=== PATIENT | male | born 1955 | race African-American/Black ===

== ENCOUNTER 2017-07-06 09:57 | Emergency (ER) | payer BC ==
--- NOTE | 2017-07-06 10:45 | EDM.PDOC ---
ED HPI GENERAL MEDICAL PROBLEM - General Chief Complaint: Respiratory Problem Stated Complaint: HEAD CONGESTION, COUGH Time Seen by Provider: 07/06/17 10:30 Source of Information: Reports: Patient History Limitations: Reports: No Limitations - History of Present Illness INITIAL COMMENTS - FREE TEXT/NARRATIVE: History of present illness: [61-year-old male comes in complaining of flulike symptoms. Indicates that he has had shortness of breath, I cough, that is productive and can be painful in his ribs when he coughs harshly. Patient also describes intermittent fevers that are low-grade and with Tylenol or ibuprofen but now he feels like he's a His Joints and He Would like to Be Evaluated.] Review of systems: As per history of present illness and below otherwise all systems reviewed and negative. Past medical history: As per history of present illness and as reviewed below otherwise noncontributory. Surgical history: As per history of present illness and as reviewed below otherwise noncontributory. Social history: No reported history of drug or alcohol abuse. Family history: As per history of present illness and as reviewed below otherwise noncontributory. Physical exam: HEENT: Atraumatic, normocephalic, pupils reactive, negative for conjunctival pallor or scleral icterus, mucous membranes moist, throat clear, neck supple, nontender, trachea midline. Lungs: Clear to auscultation, breath sounds equal bilaterally, chest nontender. Heart: S1S2, regular, negative for clicks, rubs, or JVD. Abdomen: Soft, nondistended, nontender. Negative for masses or hepatosplenomegaly. Negative for costovertebral tenderness. Pelvis: Stable nontender. Genitourinary: Deferred. Rectal: Deferred. Extremities: Atraumatic, negative for cords or calf pain. Neurovascular unremarkable. Neuro: Awake, alert, oriented. Cranial nerves II through XII unremarkable. Cerebellum unremarkable. Motor and sensory unremarkable throughout. Exam nonfocal. Assessment is benign save the subjective complaint as noted in history of present illness Diagnostics: [Influenza AB] Therapeutics: [Toradol, DuoNeb] Impression: [Viral syndrome] Plan: [Hydrate inhaler] Definitive disposition and diagnosis as appropriate pending reevaluation and review of above. Bodyaches Pain Score (Numeric/FACES): 6 - Related Data Allergies Allergy/AdvReac Type Severity Reaction Status Date / Time No Known Allergies Allergy Verified 07/06/17 10:11 Home Meds: Home Meds . [No Known Home Meds] 07/06/17 [History] Past Medical History - Past Health History Medical/Surgical History: Denies Medical/Surgical History Social & Family History - Family History Family Medical History: Noncontributory - Tobacco Use Smoking Status *Q: Never Smoker - Recreational Drug Use Recreational Drug Use: No ED ROS GENERAL - Review of Systems Review Of Systems: See Below (See history of present illness) ED EXAM, GENERAL - Physical Exam Exam: See Below (See history of present illness) Course - Vital Signs Last Recorded V/S: Last Vital Signs Temp 36.8 C 07/06/17 10:11 Pulse 90 07/06/17 10:11 Resp 18 07/06/17 10:11 BP 153/92 H 07/06/17 10:11 Pulse Ox 98 07/06/17 10:11 - Orders/Labs/Meds Orders: Active Orders 24 hr Category Date Time Status RT Aerosol Therapy [RC] ASDIRECTED Care 07/06/17 10:46 Active Meds: Medications Discontinued Medications Generic Name Dose Route Start Last Admin Trade Name Freq PRN Reason Stop Dose Admin Albuterol/Ipratropium 3 ml 07/06/17 10:46 07/06/17 11:04 Duoneb 3.0-0.5 Mg/3 Ml NEB 07/06/17 10:47 3 ml ONETIME ONE Administration Ketorolac Tromethamine 60 mg 07/06/17 10:46 07/06/17 12:28 Toradol IM 07/06/17 10:47 60 mg ONETIME ONE Administration Departure - Departure Time of Disposition: 12:36 Disposition: Home, Self-Care 01 Condition: Good Clinical Impression: Viral syndrome - Discharge Information Referrals: PCP,None [Primary Care Provider] - Forms: ED Department Discharge Additional Instructions: The following information is given to patients seen in the emergency department who are being discharged to home. This information is to outline your options for follow-up care. We provide all patients seen in our emergency department with a follow-up referral. The need for follow-up, as well as the timing and circumstances, are variable depending upon the specifics of your emergency department visit. If you don't have a primary care physician on staff, we will provide you with a referral. We always advise you to contact your personal physician following an emergency department visit to inform them of the circumstance of the visit and for follow-up with them and/or the need for any referrals to a consulting specialist. The emergency department will also refer you to a specialist when appropriate. This referral assures that you have the opportunity for follow-up care with a specialist. All of these measure are taken in an effort to provide you with optimal care, which includes your follow-up. Under all circumstances we always encourage you to contact your private physician who remains a resource for coordinating your care. When calling for follow-up care, please make the office aware that this follow-up is from your recent emergency room visit. If for any reason you are refused follow-up, please contact the [facility] Emergency Department at and asked to speak to the emergency department charge nurse. Take medication as directed Follow-up with primary care provider in 2-3 days Return to ED as needed as discussed - My Orders Last 24 Hours: My Active Orders 07/06/17 10:46 RT Aerosol Therapy [RC] ASDIRECTED - Assessment/Plan Last 24 Hours: My Active Orders 07/06/17 10:46 RT Aerosol Therapy [RC] ASDIRECTED
[2017-07-06] MEDS ORDERED: Ketorolac 60 MG/2 ML SDV IM ONE (10:46)
[2017-07-06] MEDS ORDERED: Albuterol/Ipratropium 3.0-0.5 MG/3 ML Neb Soln NEB ONE (10:46)
== END 2017-07-06 13:00 | disposition home or self-care (01) ==
LOC: MW.ED 09:57
DX: B34.9 Viral infection, unspecified (principal)
CPT/HCPCS: 94640; 96372; 99283; J1885

== ENCOUNTER 2019-05-28 11:04 | Day surgery (SDC) | payer BC ==
--- NOTE | 2019-05-28 11:19 | EDM.PDOC ---
ED HPI GENERAL MEDICAL PROBLEM - General Chief Complaint: Abdominal Pain Stated Complaint: POSSIBLE HERNIA Time Seen by Provider: 05/28/19 11:16 Source of Information: Reports: Patient History Limitations: Reports: No Limitations - History of Present Illness INITIAL COMMENTS - FREE TEXT/NARRATIVE: HISTORY AND PHYSICAL: History of present illness: Patient is a 63-year-old male who presents to the emergency room with complaints of a right lower quadrant hernia. He states he has noticed a small bump over the past 4 months. He states he will admit intermittently noticed that and will cause some pain. At 1am this morning, nico states the area was much larger and was much more painful. The hernia is in the right lower quadrant going into the testicle. He states he has been able to void and have routine bowel movements. Patient denies any fever, chills, headache, change in vision, syncope or near syncope. Denies any chest pain, back pain, shortness of breath or cough. Denies any abdominal pain, nausea, vomiting, diarrhea, constipation or dysuria. Has not noted any blood in urine or stool. Patient has been eating and drinking appropriately. Review of systems: As per history of present illness and below otherwise all systems reviewed and negative. Past medical history: As per history of present illness and as reviewed below otherwise noncontributory. Surgical history: As per history of present illness and as reviewed below otherwise noncontributory. Social history: See social history for further information Family history: As per history of present illness and as reviewed below otherwise noncontributory. Physical exam: General: Well-developed and well-nourished 63-year-old -[place] male. Alert and oriented. Nontoxic appearing and in no acute distress. HEENT: Atraumatic, normocephalic, pupils equal and reactive bilaterally, negative for conjunctival pallor or scleral icterus, mucous membranes moist, trachea midline. No drooling or trismus noted. No meningeal signs. No hot potato voice noted. Lungs: Clear to auscultation, breath sounds equal bilaterally, chest nontender. Heart: S1S2, regular rate and rhythm without overt murmur Abdomen: Soft, nondistended, right inguinal hernia that is firm to palpation into the right testicle. Negative for masses or costovertebral tenderness. Pelvis: Stable nontender. Genitourinary: Large hernia noted to the right groin, unable to reduce. Right testicle is firm to touch. No erythema or lesion noted. Rectal: Deferred. Skin: Intact, warm, dry. No lesions or rashes noted. Extremities: Atraumatic, moves all extremities per self without difficulty or deficits. Neurovascular unremarkable. Neuro: Awake, alert, oriented. Cranial nerves II through XII unremarkable. Cerebellum unremarkable. Motor and sensory unremarkable throughout. Exam nonfocal. Notes: Dr. Longo was consulted on this case and he will come and evaluate the patient. Dr Longo has seen patient, will take to the OR Diagnostics: CBC, CMP, EKG Therapeutics: IV fluids, morphine, zofran Impression: Right inguinal hernia, incarcerated Plan: To the OR for further care and management. Definitive disposition and diagnosis as appropriate pending reevaluation and review of above. right lower abd Pain Score (Numeric/FACES): 8 - Related Data Allergies Allergy/AdvReac Type Severity Reaction Status Date / Time No Known Allergies Allergy Verified 05/28/19 11:15 Home Meds: Home Meds . [No Known Home Meds] 05/28/19 [History] Past Medical History - Past Health History Medical/Surgical History: Denies Medical/Surgical History Social & Family History - Family History Family Medical History: Noncontributory ED ROS GENERAL - Review of Systems Review Of Systems: Comprehensive ROS is negative, except as noted in HPI. ED EXAM, GI/ABD - Physical Exam Exam: See Below (See dictation) Course - Vital Signs Last Recorded V/S: Last Vital Signs Temp 96.9 F 05/28/19 11:13 Pulse 90 05/28/19 11:43 Resp 18 05/28/19 11:43 BP 183/105 H 05/28/19 11:43 Pulse Ox 98 05/28/19 11:43 - Orders/Labs/Meds Orders: Active Orders 24 hr Category Date Time Status Antiembolic Devices [RC] PER UNIT ROUTINE Care 05/28/19 12:00 Active EKG Documentation Completion [RC] STAT Care 05/28/19 11:24 Active Notify Provider Consults [RC] ASDIRECTED Care 05/28/19 11:30 Active Oxygen Therapy [RC] ASDIRECTED Care 05/28/19 12:00 Active Pulse Oximetry [RC] ASDIRECTED Care 05/28/19 12:00 Active Skin Preparation [RC] ASDIRECTED Care 05/28/19 12:00 Active Vital Signs [RC] Q1H Care 05/28/19 12:00 Active Consult to Physician [CONS] Stat Cons 05/28/19 11:30 Active Nothing Per Oral Diet [DIET] Diet 05/28/19 Dinner Active UA RFX MARGOT AND CULT IF INDIC [URIN] Stat Lab 05/28/19 11:20 Ordered Lactated Ringers [Ringers, Lactated] 1,000 ml Med 05/28/19 11:30 Active IV ASDIRECTED Lactated Ringers [Ringers, Lactated] 1,000 ml Med 05/28/19 12:00 Ordered IV ASDIRECTED ceFAZolin [Ancef] 2 gm Med 05/28/19 11:54 Active Premix Bag 1 bag IV ONETIME Antiembolic Hose [OM.PC] Routine Oth 05/28/19 12:00 Ordered Sequential Compression Device [OM.PC] Routine Oth 05/28/19 12:00 Ordered Resuscitation Status Routine Resus Stat 05/28/19 12:00 Ordered Medication Orders Lactated Ringer's (Ringers, Lactated) 1,000 mls @ 100 mls/hr IV ASDIRECTED SONIYA Last Admin: 05/28/19 11:39 Dose: 100 mls/hr Cefazolin Sodium/Dextrose 2 gm (/ Premix) 50 mls @ 100 mls/hr IV ONETIME ONE Stop: 05/28/19 12:23 Lactated Ringer's (Ringers, Lactated) 1,000 mls @ 125 mls/hr IV ASDIRECTED [facility] Labs: Laboratory Tests 05/28/19 05/28/19 Range/Units 11:23 11:23 WBC 10.40 (4.0-11.0) K/uL RBC 5.15 (4.50-5.90) M/uL Hgb 14.9 (13.0-17.0) g/dL Hct 42.5 (38.0-50.0) % MCV 82.5 (80.0-98.0) fL MCH 28.9 (27.0-32.0) pg MCHC 35.1 (31.0-37.0) g/dL RDW Std Deviation 39.4 (28.0-62.0) fl RDW Coeff of Miguelito 13 (11.0-15.0) % Plt Count 255 (150-400) K/uL MPV 9.90 (7.40-12.00) fL Neut % (Auto) 88.0 H (48.0-80.0) % Lymph % (Auto) 9.2 L (16.0-40.0) % [place] % (Auto) 2.7 (0.0-15.0) % Eos % (Auto) 0.0 (0.0-7.0) % Baso % (Auto) 0.1 (0.0-1.5) % Neut # (Auto) 9.2 H (1.4-5.7) K/uL Lymph # (Auto) 1.0 (0.6-2.4) K/uL [place] # (Auto) 0.3 (0.0-0.8) K/uL Eos # (Auto) 0.0 (0.0-0.7) K/uL Baso # (Auto) 0.0 (0.0-0.1) K/uL Nucleated RBC % 0.0 /100WBC Nucleated RBCs # 0 K/uL Sodium 142 (136-148) mmol/L Potassium 3.6 (3.5-5.1) mmol/L Chloride 102 (98-107) mmol/L Carbon Dioxide 27.8 (21.0-32.0) mmol/L BUN 30 H (7.0-18.0) mg/dL Creatinine 1.3 (0.8-1.3) mg/dL Est Cr Clr Drug Dosing 60.94 mL/min Estimated GFR (MDRD) > 60.0 ml/min Glucose 129 H (74-106) mg/dL Calcium 8.8 (8.5-10.1) mg/dL Total Bilirubin 2.0 H (0.2-1.0) mg/dL AST 45 H (15-37) IU/L ALT 48 (14-63) IU/L Alkaline Phosphatase 109 (46-116) U/L Total Protein 8.6 H (6.4-8.2) g/dL Albumin 3.7 (3.4-5.0) g/dL Globulin 4.9 H (2.6-4.0) g/dL Albumin/Globulin Ratio 0.8 L (0.9-1.6) Meds: Medications Generic Name Dose Route Start Last Admin Trade Name Freq PRN Reason Stop Dose Admin Lactated Ringer's 1,000 mls @ 100 mls/hr 05/28/19 11:30 05/28/19 11:39 Ringers, Lactated IV 100 mls/hr ASDIRECTED SONIYA Administration Cefazolin Sodium/Dextrose 2 gm 50 mls @ 100 mls/hr 05/28/19 11:54 / Premix IV 05/28/19 12:23 ONETIME ONE Lactated Ringer's 1,000 mls @ 125 mls/hr 05/28/19 12:00 Ringers, Lactated IV ASDIRECTED SONIYA Discontinued Medications Generic Name Dose Route Start Last Admin Trade Name Freq PRN Reason Stop Dose Admin Bupivacaine HCl Confirm 05/28/19 11:59 Sensorcaine-Mpf 0.5% Administered 05/28/19 12:00 Dose 10 ml .ROUTE .STK-MED ONE Cefazolin Sodium Confirm 05/28/19 11:59 Ancef Administered 05/28/19 12:00 Dose 1 gm .ROUTE .STK-MED ONE Fentanyl Confirm 05/28/19 11:58 Sublimaze Administered 05/28/19 11:59 Dose 250 mcg .ROUTE .STK-MED ONE Glycopyrrolate Confirm 05/28/19 12:00 Robinul Administered 05/28/19 12:01 Dose 0.2 mg .ROUTE .STK-MED ONE Sodium Chloride 1,000 mls @ 999 mls/hr 05/28/19 11:20 05/28/19 11:40 Normal Saline IV 05/28/19 12:20 Not Given STAT ONE Ketorolac Tromethamine Confirm 05/28/19 12:00 Toradol Administered 05/28/19 12:01 Dose 30 mg .ROUTE .STK-MED ONE Midazolam HCl Confirm 05/28/19 11:58 Versed 1 Mg/Ml Administered 05/28/19 11:59 Dose 2 mg .ROUTE .STK-MED ONE Morphine Sulfate 2 mg 05/28/19 11:27 05/28/19 11:39 Morphine IVPUSH 05/28/19 11:28 2 mg ONETIME ONE Administration Ondansetron HCl 4 mg 05/28/19 11:27 05/28/19 11:39 Zofran IVPUSH 05/28/19 11:28 4 mg ONETIME ONE Administration Ondansetron HCl Confirm 05/28/19 12:00 Zofran Administered 05/28/19 12:01 Dose 4 mg .ROUTE .STK-MED ONE Propofol Confirm 05/28/19 11:58 Diprivan 20 Ml Administered 05/28/19 11:59 Dose 200 mg .ROUTE .STK-MED ONE Rocuronium [place] Confirm 05/28/19 12:00 Zemuron Administered 05/28/19 12:01 Dose 100 mg .ROUTE .STK-MED ONE Succinylcholine Chloride Confirm 05/28/19 12:00 Succinylcholine Chloride Administered 05/28/19 12:01 Dose 200 mg .ROUTE .STK-MED ONE Departure - Departure Time of Disposition: 12:05 Disposition: Still A Patient 30 Clinical Impression: Incarcerated right inguinal hernia - Discharge Information Referrals: PCP,None [Primary Care Provider] - Forms: ED Department Discharge - My Orders Last 24 Hours: My Active Orders 05/28/19 11:20 UA RFX MARGOT AND CULT IF INDIC [URIN] Stat 05/28/19 11:24 EKG Documentation Completion [RC] STAT 05/28/19 11:30 Notify Provider Consults [RC] ASDIRECTED Consult to Physician [CONS] Stat Lactated Ringers [Ringers, Lactated] 1,000 ml IV ASDIRECTED - Assessment/Plan Last 24 Hours: My Active Orders 05/28/19 11:20 UA RFX MARGOT AND CULT IF INDIC [URIN] Stat 05/28/19 11:24 EKG Documentation Completion [RC] STAT 05/28/19 11:30 Notify Provider Consults [RC] ASDIRECTED Consult to Physician [CONS] Stat Lactated Ringers [Ringers, Lactated] 1,000 ml IV ASDIRECTED
[2019-05-28] MEDS ORDERED: Sodium Chloride 0.9% 1,000 ML IV ONE (11:20)
[2019-05-28] MEDS ORDERED: Morphine 2 MG/ML Syringe IVPUSH ONE (11:27)
[2019-05-28] MEDS ORDERED: Ondansetron 4 MG/2 ML SDV IVPUSH ONE (11:27)
[2019-05-28] MEDS ORDERED: Lactated Ringers 1,000 ML IV SCH ×2 (11:30→12:00)
[2019-05-28] MEDS ORDERED: Etomidate 2 MG/ML 20 ML SDV IVPUSH ONE (11:38)
--- NOTE | 2019-05-28 11:45 | PCM.HP.2 ---
<Yudith Vernon - Last Filed: 05/28/19 12:00> H&P History of Present Illness - General Date of Service: 05/28/19 Admit Problem/Dx: Incarcerated Right inguinal hernia Source of Information: Patient History Limitations: Reports: No Limitations - History of Present Illness Initial Comments - Free Text/Narative: Mario Chang is a 63 yr old male that presents to the ED today with right groin pain that started last night. He states that he has known about his inguinal hernia for a few months. The hernia will occasionally give him pain but never like the pain he is having currently. The pain started acutely last night and has not improved. Denies any obstructive symptoms. Denies fever or chills. Last ate a banana 30 mins before coming in this am. Symptom Onset Date: 05/27/19 Duration of Symptoms: Reports: Constant, Getting Worse Location: Reports: Other (Right groin) Quality: Reports: Sharp, Stabbing Severity: Moderate Improves with: Reports: None Worsens with: Reports: Movement Associated Symptoms: Reports: No Other Symptoms right lower abd Pain Score (Numeric/FACES): 8 - Related Data Allergies/Adverse Reactions: Allergies Allergy/AdvReac Type Severity Reaction Status Date / Time No Known Allergies Allergy Verified 05/28/19 11:15 Home Medications: Home Meds . [No Known Home Meds] 05/28/19 [History] Past Medical History - Past Health History Medical/Surgical History: Denies Medical/Surgical History - Past Surgical History Other Surgical History Comment: No past surgeries Social & Family History - Family History Family Medical History: Noncontributory - Tobacco Use Smoking Status *Q: Never Smoker - Recreational Drug Use Recreational Drug Use: No H&P Review of Systems - Review of Systems: Review Of Systems: See Below General: Reports: No Symptoms. Denies: Fever, Chills, Weakness, Fatigue HEENT: Reports: No Symptoms. Denies: Ear Pain, Sinus Congestion, Sore Throat, Visual Changes Pulmonary: Denies: Shortness of Breath, Wheezing, Cough, Sputum Cardiovascular: Denies: Chest Pain, Palpitations, Dyspnea on Exertion, Edema Gastrointestinal: Reports: Abdominal Pain. Denies: Anorexia, Black Stool, Constipation, Diarrhea, Distension, Vomiting Genitourinary: Denies: Dysuria, Frequency, Burning Musculoskeletal: Reports: No Symptoms Skin: Reports: No Symptoms Hematologic/Lymphatic: Reports: No Symptoms Exam - Exam Exam: See Below - Vital Signs Vital Signs: Last Vital Signs Temp 96.9 F 05/28/19 11:13 Pulse 112 H 05/28/19 11:13 Resp 18 05/28/19 11:13 BP 198/114 H 05/28/19 11:13 Pulse Ox 97 05/28/19 11:13 Weight: 159 lb 2.78 oz - Exam General: Alert, Oriented, Cooperative HEENT: Conjunctiva Clear, EOMI, Nares Patent Neck: Supple Lungs: Clear to Auscultation, Normal Respiratory Effort Cardiovascular: Regular Rate, Regular Rhythm GI/Abdominal Exam: Normal Bowel Sounds, Soft, No Distention (Male) Exam: Hernia (Right incarcerated inguinal hernia that is hard to touch and tender to palpation) Extremities: No Pedal Edema Skin: Warm, Dry, Intact Neurological: Cranial Nerves Intact Neuro Extensive - Mental Status: Alert, Oriented x3, Normal Mood/Affect, Normal Cognition, Memory Intact Neuro Extensive - Motor, Sensory, Reflexes: CN II-XII Intact Psychiatric: Alert, Normal Affect, Normal Mood - Patient Data Lab Results Last 24 hrs: Laboratory Results - last 24 hr 05/28/19 Range/Units 11:23 WBC 10.40 (4.0-11.0) K/uL RBC 5.15 (4.50-5.90) M/uL Hgb 14.9 (13.0-17.0) g/dL Hct 42.5 (38.0-50.0) % MCV 82.5 (80.0-98.0) fL MCH 28.9 (27.0-32.0) pg MCHC 35.1 (31.0-37.0) g/dL RDW Std Deviation 39.4 (28.0-62.0) fl RDW Coeff of Miguelito 13 (11.0-15.0) % Plt Count 255 (150-400) K/uL MPV 9.90 (7.40-12.00) fL Neut % (Auto) 88.0 H (48.0-80.0) % Lymph % (Auto) 9.2 L (16.0-40.0) % [place] % (Auto) 2.7 (0.0-15.0) % Eos % (Auto) 0.0 (0.0-7.0) % Baso % (Auto) 0.1 (0.0-1.5) % Neut # (Auto) 9.2 H (1.4-5.7) K/uL Lymph # (Auto) 1.0 (0.6-2.4) K/uL [place] # (Auto) 0.3 (0.0-0.8) K/uL Eos # (Auto) 0.0 (0.0-0.7) K/uL Baso # (Auto) 0.0 (0.0-0.1) K/uL Nucleated RBC % 0.0 /100WBC Nucleated RBCs # 0 K/uL Result Diagrams: 05/28/19 11:23 05/28/19 11:23 *Q Meaningful Use (ADM) - VTE Risk Assess *Q Each Risk Factor Represents 2 Points: Age 60 - 74 Years Total Score 2 Point Risk Factors: 2 - Problem List (1) Incarcerated right inguinal hernia SNOMED Code(s): 844338468 ICD Code: K40.30 - UNIL INGUINAL HERNIA, W OBST, W/O GANGR, NOT SPCF RECUR Status: Acute Priority: High Current Visit: Yes Problem List Initiated/Reviewed/Updated: Yes Orders Last 24hrs: Active Orders 24 hr Category Date Time Status EKG Documentation Completion [RC] STAT Care 05/28/19 11:24 Active Notify Provider Consults [RC] ASDIRECTED Care 05/28/19 11:30 Active Consult to Physician [CONS] Stat Cons 05/28/19 11:30 Active Abdomen Pelvis w Cont [CT] Stat Exams 05/28/19 11:20 Stop Req COMPREHENSIVE METABOLIC PN,CMP [CHEM] Stat Lab 05/28/19 11:23 Received UA RFX MARGOT AND CULT IF INDIC [URIN] Stat Lab 05/28/19 11:20 Ordered Lactated Ringers [Ringers, Lactated] 1,000 ml Med 05/28/19 11:30 Active IV ASDIRECTED Medication Orders Lactated Ringer's (Ringers, Lactated) 1,000 mls @ 100 mls/hr IV ASDIRECTED [facility] Last Admin: 05/28/19 11:39 Dose: 100 mls/hr Assessment/Plan Comment:: 63 yr old male that presents to the ED with acute onset of right groin pain last night. He has a known inguinal hernia which is now incarcerated. Plan to go to the OR for fixation of the hernia. -Admit -OR for open right inguinal hernia repair, possible bowel resection, possible laparotomy with Dr. Longo -2 grams of ancef pre-op -NPO -Full code <Raj Longo - Last Filed: 05/28/19 12:09> Exam - Vital Signs Vital Signs: Last Vital Signs Temp 96.9 F 05/28/19 11:13 Pulse 90 05/28/19 11:43 Resp 18 05/28/19 11:43 BP 183/105 H 05/28/19 11:43 Pulse Ox 98 05/28/19 11:43 - Patient Data Lab Results Last 24 hrs: Laboratory Results - last 24 hr 05/28/19 05/28/19 Range/Units 11:23 11:23 WBC 10.40 (4.0-11.0) K/uL RBC 5.15 (4.50-5.90) M/uL Hgb 14.9 (13.0-17.0) g/dL Hct 42.5 (38.0-50.0) % MCV 82.5 (80.0-98.0) fL MCH 28.9 (27.0-32.0) pg MCHC 35.1 (31.0-37.0) g/dL RDW Std Deviation 39.4 (28.0-62.0) fl RDW Coeff of Miguelito 13 (11.0-15.0) % Plt Count 255 (150-400) K/uL MPV 9.90 (7.40-12.00) fL Neut % (Auto) 88.0 H (48.0-80.0) % Lymph % (Auto) 9.2 L (16.0-40.0) % [place] % (Auto) 2.7 (0.0-15.0) % Eos % (Auto) 0.0 (0.0-7.0) % Baso % (Auto) 0.1 (0.0-1.5) % Neut # (Auto) 9.2 H (1.4-5.7) K/uL Lymph # (Auto) 1.0 (0.6-2.4) K/uL [place] # (Auto) 0.3 (0.0-0.8) K/uL Eos # (Auto) 0.0 (0.0-0.7) K/uL Baso # (Auto) 0.0 (0.0-0.1) K/uL Nucleated RBC % 0.0 /100WBC Nucleated RBCs # 0 K/uL Sodium 142 (136-148) mmol/L Potassium 3.6 (3.5-5.1) mmol/L Chloride 102 (98-107) mmol/L Carbon Dioxide 27.8 (21.0-32.0) mmol/L BUN 30 H (7.0-18.0) mg/dL Creatinine 1.3 (0.8-1.3) mg/dL Est Cr Clr Drug Dosing 60.94 mL/min Estimated GFR (MDRD) > 60.0 ml/min Glucose 129 H (74-106) mg/dL Calcium 8.8 (8.5-10.1) mg/dL Total Bilirubin 2.0 H (0.2-1.0) mg/dL AST 45 H (15-37) IU/L ALT 48 (14-63) IU/L Alkaline Phosphatase 109 (46-116) U/L Total Protein 8.6 H (6.4-8.2) g/dL Albumin 3.7 (3.4-5.0) g/dL Globulin 4.9 H (2.6-4.0) g/dL Albumin/Globulin Ratio 0.8 L (0.9-1.6) Result Diagrams: 05/28/19 11:23 05/28/19 11:23 - Problem List (1) Incarcerated right inguinal hernia SNOMED Code(s): 799106477 ICD Code: K40.30 - UNIL INGUINAL HERNIA, W OBST, W/O GANGR, NOT SPCF RECUR Status: Acute Priority: High Current Visit: Yes Problem List Initiated/Reviewed/Updated: Yes Orders Last 24hrs: Active Orders 24 hr Category Date Time Status Antiembolic Devices [RC] PER UNIT ROUTINE Care 05/28/19 12:00 Active EKG Documentation Completion [RC] STAT Care 05/28/19 11:24 Active Notify Provider Consults [RC] ASDIRECTED Care 05/28/19 11:30 Active Oxygen Therapy [RC] ASDIRECTED Care 05/28/19 12:00 Active Pulse Oximetry [RC] ASDIRECTED Care 05/28/19 12:00 Active Skin Preparation [RC] ASDIRECTED Care 05/28/19 12:00 Active Vital Signs [RC] Q1H Care 05/28/19 12:00 Active Consult to Physician [CONS] Stat Cons 05/28/19 11:30 Active Nothing Per Oral Diet [DIET] Diet 05/28/19 Dinner Active UA RFX MARGOT AND CULT IF INDIC [URIN] Stat Lab 05/28/19 11:20 Ordered Lactated Ringers [Ringers, Lactated] 1,000 ml Med 05/28/19 11:30 Active IV ASDIRECTED Lactated Ringers [Ringers, Lactated] 1,000 ml Med 05/28/19 12:00 Active IV ASDIRECTED ceFAZolin [Ancef] 2 gm Med 05/28/19 11:54 Active Premix Bag 1 bag IV ONETIME fentaNYL Med 05/28/19 12:07 Once 50 mcg IVPUSH ONETIME ONE fentaNYL [Sublimaze] Med 05/28/19 12:07 Ordered 50 mcg IVPUSH Q5M PRN Antiembolic Hose [OM.PC] Routine Oth 05/28/19 12:00 Ordered Sequential Compression Device [OM.PC] Routine Oth 05/28/19 12:00 Ordered Resuscitation Status Routine Resus Stat 05/28/19 12:00 Ordered Medication Orders Lactated Ringer's (Ringers, Lactated) 1,000 mls @ 100 mls/hr IV ASDIRECTED [facility] Last Admin: 05/28/19 11:39 Dose: 100 mls/hr Cefazolin Sodium/Dextrose 2 gm (/ Premix) 50 mls @ 100 mls/hr IV ONETIME ONE Stop: 05/28/19 12:23 Last Admin: 05/28/19 12:05 Dose: 100 mls/hr Lactated Ringer's (Ringers, Lactated) 1,000 mls @ 125 mls/hr IV ASDIRECTED [facility] Assessment/Plan Comment:: Patient seen and examined with Dr. eVrnon. I agree with her assessment and plan. The operative procedure of repair of a right incarcerated inguinal hernia repair , along with the risks, including, but not limited to, bleeding, infection, pneumonia, deep venous thrombosis, pulmonary embolus, myocardial infarction, recurrence of the hernia, possible laparotomy and small bowel resection, and the use of mesh, were discussed with the patient who voices understanding, offers no questions and wishes to proceed. Both verbal and written instructions were given to the patient.
[2019-05-28 11:53] LABS: BLOOD UREA NITROGEN,BUN 30 mg/dL (7.0-18.0); CARBON DIOXIDE,CO2 27.8 mmol/L (21.0-32.0); CHLORIDE,CL 102 mmol/L (98-107); GLUCOSE RANDOM 129 mg/dL (74-106); POTASSIUM,K 3.6 mmol/L (3.5-5.1); SODIUM,NA 142 mmol/L (136-148)
[2019-05-28] MEDS ORDERED: ceFAZolin 2 GM in Premix Bag 1 BAG IV ONE (11:54)
[2019-05-28] MEDS ORDERED: fentaNYL 250 MCG/5 ML SDV ONE (11:58)
[2019-05-28] MEDS ORDERED: Propofol 200 MG/20 ML SDV ONE (11:58)
[2019-05-28] MEDS ORDERED: Midazolam 1 MG/ML 2 ML SDV ONE (11:58)
[2019-05-28] MEDS ORDERED: ceFAZolin 1 GM Vial ONE (11:59)
[2019-05-28] MEDS ORDERED: Bupivacaine 0.5% 10 ML SDV ONE ×2 (11:59→14:01)
[2019-05-28] MEDS ORDERED: Glycopyrrolate 0.2 MG/ML SDV ONE (12:00)
[2019-05-28] MEDS ORDERED: Ondansetron 4 MG/2 ML SDV ONE (12:00)
[2019-05-28] MEDS ORDERED: Rocuronium 100 MG/10 ML Syringe ONE (12:00)
[2019-05-28] MEDS ORDERED: Ketorolac 30 MG/ML SDV ONE (12:00)
[2019-05-28] MEDS ORDERED: Sugammadex Sodium 200 MG/2 ML VIAL ONE (12:03)
[2019-05-28] MEDS ORDERED: fentaNYL 100 MCG/2 ML SDV IVPUSH PRN (12:07)
[2019-05-28] MEDS ORDERED: fentaNYL 100 MCG/2 ML SDV IVPUSH ONE (12:07)
--- NOTE | 2019-05-28 12:07 | PCM.PREANE ---
Preanesthetic Assessment - Anesthesia/Transfusion/Family Hx Anesthesia History: No Prior Anesthesia Family History of Anesthesia Reaction: No - Physical Assessment NPO Status Date: 05/28/19 NPO Status Time: 10:30 Vital Signs: Last Vital Signs Temp 36.1 C 05/28/19 11:13 Pulse 90 05/28/19 11:43 Resp 18 05/28/19 11:43 BP 183/105 H 05/28/19 11:43 Pulse Ox 98 05/28/19 11:43 Height: 1.78 m Weight: 72.2 kg ASA Class: 1E - Lab Values: Laboratory Last Values WBC 10.40 K/uL (4.0-11.0) 05/28/19 11:23 RBC 5.15 M/uL (4.50-5.90) 05/28/19 11:23 Hgb 14.9 g/dL (13.0-17.0) 05/28/19 11:23 Hct 42.5 % (38.0-50.0) 05/28/19 11:23 MCV 82.5 fL (80.0-98.0) 05/28/19 11:23 MCH 28.9 pg (27.0-32.0) 05/28/19 11:23 MCHC 35.1 g/dL (31.0-37.0) 05/28/19 11:23 RDW Std Deviation 39.4 fl (28.0-62.0) 05/28/19 11:23 RDW Coeff of Miguelito 13 % (11.0-15.0) 05/28/19 11:23 Plt Count 255 K/uL (150-400) 05/28/19 11:23 MPV 9.90 fL (7.40-12.00) 05/28/19 11:23 Neut % (Auto) 88.0 % (48.0-80.0) H 05/28/19 11:23 Lymph % (Auto) 9.2 % (16.0-40.0) L 05/28/19 11:23 [place] % (Auto) 2.7 % (0.0-15.0) 05/28/19 11:23 Eos % (Auto) 0.0 % (0.0-7.0) 05/28/19 11:23 Baso % (Auto) 0.1 % (0.0-1.5) 05/28/19 11:23 Neut # (Auto) 9.2 K/uL (1.4-5.7) H 05/28/19 11:23 Lymph # (Auto) 1.0 K/uL (0.6-2.4) 05/28/19 11:23 [place] # (Auto) 0.3 K/uL (0.0-0.8) 05/28/19 11:23 Eos # (Auto) 0.0 K/uL (0.0-0.7) 05/28/19 11:23 Baso # (Auto) 0.0 K/uL (0.0-0.1) 05/28/19 11:23 Nucleated RBC % 0.0 /100WBC 05/28/19 11:23 Nucleated RBCs # 0 K/uL 05/28/19 11:23 Sodium 142 mmol/L (136-148) 05/28/19 11:23 Potassium 3.6 mmol/L (3.5-5.1) 05/28/19 11:23 Chloride 102 mmol/L (98-107) 05/28/19 11:23 Carbon Dioxide 27.8 mmol/L (21.0-32.0) 05/28/19 11:23 BUN 30 mg/dL (7.0-18.0) H 05/28/19 11:23 Creatinine 1.3 mg/dL (0.8-1.3) 05/28/19 11:23 Est Cr Clr Drug Dosing 60.94 mL/min 05/28/19 11:23 Estimated GFR (MDRD) > 60.0 ml/min 05/28/19 11:23 Glucose 129 mg/dL (74-106) H 05/28/19 11:23 Calcium 8.8 mg/dL (8.5-10.1) 05/28/19 11:23 Total Bilirubin 2.0 mg/dL (0.2-1.0) H 05/28/19 11:23 AST 45 IU/L (15-37) H 05/28/19 11:23 ALT 48 IU/L (14-63) 05/28/19 11:23 Alkaline Phosphatase 109 U/L (46-116) 05/28/19 11:23 Total Protein 8.6 g/dL (6.4-8.2) H 05/28/19 11:23 Albumin 3.7 g/dL (3.4-5.0) 05/28/19 11:23 Globulin 4.9 g/dL (2.6-4.0) H 05/28/19 11:23 Albumin/Globulin Ratio 0.8 (0.9-1.6) L 05/28/19 11:23 - Allergies Allergies/Adverse Reactions: Allergies Allergy/AdvReac Type Severity Reaction Status Date / Time No Known Allergies Allergy Verified 05/28/19 11:15 - Acknowledgements Anesthesia Type Planned: General Anesthesia Pt an Appropriate Candidate for the Planned Anesthesia: Yes Alternatives and Risks of Anesthesia Discussed w Pt/Guardian: Yes Pt/Guardian Understands and Agrees with Anesthesia Plan: Yes PreAnesthesia Questionnaire - Past Health History Medical/Surgical History: Denies Medical/Surgical History - Past Surgical History Other Surgical History Comment: No past surgeries - SUBSTANCE USE Smoking Status *Q: Never Smoker Recreational Drug Use History: No - HOME MEDS Home Medications: Home Meds . [No Known Home Meds] 05/28/19 [History] - CURRENT (IN HOUSE) MEDS Current Meds: Current Medications Lactated Ringer's (Ringers, Lactated) 1,000 mls @ 100 mls/hr IV ASDIRECTED [facility] Last Admin: 05/28/19 11:39 Dose: 100 mls/hr Cefazolin Sodium/Dextrose 2 gm (/ Premix) 50 mls @ 100 mls/hr IV ONETIME ONE Stop: 05/28/19 12:23 Last Admin: 05/28/19 12:05 Dose: 100 mls/hr Lactated Ringer's (Ringers, Lactated) 1,000 mls @ 125 mls/hr IV ASDIRECTED [facility] Discontinued Medications Bupivacaine HCl (Sensorcaine-Mpf 0.5%) Confirm Administered Dose 10 ml .ROUTE .STK-MED ONE Stop: 05/28/19 12:00 Cefazolin Sodium (Ancef) Confirm Administered Dose 1 gm .ROUTE .STK-MED ONE Stop: 05/28/19 12:00 Fentanyl (Sublimaze) Confirm Administered Dose 250 mcg .ROUTE .STK-MED ONE Stop: 05/28/19 11:59 Glycopyrrolate (Robinul) Confirm Administered Dose 0.2 mg .ROUTE .STK-MED ONE Stop: 05/28/19 12:01 Sodium Chloride (Normal Saline) 1,000 mls @ 999 mls/hr IV STAT ONE Stop: 05/28/19 12:20 Last Admin: 05/28/19 11:40 Dose: Not Given Ketorolac Tromethamine (Toradol) Confirm Administered Dose 30 mg .ROUTE .STK- MED ONE Stop: 05/28/19 12:01 Midazolam HCl (Versed 1 Mg/Ml) Confirm Administered Dose 2 mg .ROUTE .STK-MED ONE Stop: 05/28/19 11:59 Morphine Sulfate (Morphine) 2 mg IVPUSH ONETIME ONE Stop: 05/28/19 11:28 Last Admin: 05/28/19 11:39 Dose: 2 mg Ondansetron HCl (Zofran) 4 mg IVPUSH ONETIME ONE Stop: 05/28/19 11:28 Last Admin: 05/28/19 11:39 Dose: 4 mg Ondansetron HCl (Zofran) Confirm Administered Dose 4 mg .ROUTE .STK-MED ONE Stop: 05/28/19 12:01 Propofol (Diprivan 20 Ml) Confirm Administered Dose 200 mg .ROUTE .STK-MED ONE Stop: 05/28/19 11:59 Rocuronium [place] (Zemuron) Confirm Administered Dose 100 mg .ROUTE .STK-MED ONE Stop: 05/28/19 12:01 Succinylcholine Chloride (Succinylcholine Chloride) Confirm Administered Dose 200 mg .ROUTE .STK-MED ONE Stop: 05/28/19 12:01
[2019-05-28] MEDS ORDERED: Ondansetron 4 MG/2 ML SDV IVPUSH PRN ×2 (12:08→14:25)
[2019-05-28] MEDS ORDERED: Phenylephrine/Normal Saline 100 MCG/ML 10 ML Syringe ONE (12:42)
[2019-05-28] MEDS ORDERED: fentaNYL 100 MCG/2 ML SDV ONE (14:00)
[2019-05-28] MEDS ORDERED: diphenhydrAMINE 50 MG/ML SDV IVPUSH PRN (14:25)
[2019-05-28] MEDS ORDERED: HYDROmorphone 2 MG/ML Syringe IVPUSH PRN (14:25)
[2019-05-28] MEDS ORDERED: Benzocaine/Cetylpyridinium/Menthol Lozenge MUCMEM PRN (14:25)
[2019-05-28] MEDS ORDERED: Acetaminophen/HYDROcodone 325-10 MG Tab PO PRN (14:25)
[2019-05-28] MEDS ORDERED: Acetaminophen/HYDROcodone 325-5 MG Tab PO PRN (14:25)
[2019-05-28] MEDS ORDERED: Ketorolac 30 MG/ML SDV IM SCH (14:30)
--- NOTE | 2019-05-28 14:42 | PCM.OPNOTE ---
- General Post-Op/Procedure Note Date of Surgery/Procedure: 05/28/19 Operative Procedure(s): Repair incarcerated right inguinal hernia with medium Bard PerFix plug and patch Pre Op Diagnosis: Incarcerated right inguinal hernia Post-Op Diagnosis: Same Anesthesia Technique: General ET Tube (ASA IIE) Primary Surgeon: Raj Longo Group Burner Machine: Yudith Vernon Fluid Replacement, Intraop: 1,100 EBL in mLs: 20 Condition: Good Free Text/Narrative:: DICTATION [id number] CPT CODE 93982
--- NOTE | 2019-05-28 14:53 | PCM.POSTAN ---
POST ANESTHESIA ASSESSMENT - MENTAL STATUS Mental Status: Alert - VITAL SIGNS Vital Signs: Last Vital Signs Temp 37.8 C 05/28/19 14:21 Pulse 91 05/28/19 14:37 Resp 11 L 05/28/19 14:37 BP 144/84 H 05/28/19 14:37 Pulse Ox 100 05/28/19 14:37 - RESPIRATORY Respiratory Status: Respiratory Rate WNL - CARDIOVASCULAR CV Status: Pulse Rate WNL - GASTROINTESTINAL GI Status: No Symptoms - POST OP HYDRATION Hydration Status: Adequate & Stable
--- NOTE | 2019-05-28 14:57 | OR ---
SURGEON: Raj Longo M.D. DATE OF PROCEDURE: 05/28/2019 PROCEDURE PERFORMED: Repair of incarcerated right inguinal hernia with medium Bard PerFix plug and patch. PRIMARY SURGEON: Raj Longo M.D. PATROL SUPERVISOR: Billing Manager: Dr. Ho, PGY-2. ANESTHESIA: General endotracheal. ASA CLASSIFICATION: IIE. PREOPERATIVE DIAGNOSIS: Incarcerated right inguinal hernia. POSTOPERATIVE DIAGNOSIS: Incarcerated right inguinal hernia. ESTIMATED BLOOD LOSS: 20 mL. INTRAOPERATIVE FLUID REPLACEMENT: 1100 mL of crystalloid. DESCRIPTION OF PROCEDURE: The patient was taken to the operating room and placed on the operating table in the supine position. Time-out was called for appropriate identification of the patient and procedure. Thigh-high TEDs and sequential compression boots were placed. The surgical site had been identified with the members of the operating team prior to induction of anesthesia. Following satisfactory induction of general endotracheal anesthesia, the abdomen was prepped with DuraPrep solution and sterile drapes were applied. The skin incision was marked out in the right inguinal crease and infiltrated with 10 mL of 0.5% Marcaine solution. The skin incision was made and deepened through the subcutaneous tissue obtaining hemostasis with the use of electrocautery. Dissection was carried down to the external oblique fascia, which was opened in the direction of its fibers sharply. The ilioinguinal nerve was identified and protected. With great difficulty, we were able to mobilize the large hernia sac. As we were mobilizing this, its contents reduced spontaneously. Again, with great difficulty, we were able to separate the hernia sac from the spermatic cord and its contents. It should be noted that the spermatic cord was densely adherent and dissection was quite tedious. We did open the hernia sac to facilitate dissection. There was a small amount of bloody-appearing fluid, but no pus, no purulence, and no foul odor. As dissection was continued, the sac was further opened until we opened it to its base. Again, we kept a hemostat on the apex for identification. Once the spermatic cord had been completely mobilized and encircled with a Max drain, a pursestring suture of 2-0 silk was placed at the neck of the hernia sac. The excess sac was amputated and the edges were cauterized for hemostasis. The 0 silk suture was then cut and the sac retracted. At that point, it was only necessary to use a medium Bard PerFix plug and patch. These were brought to the operating table and soaked in 1% Ancef solution. The plug was placed into the internal ring and secured with 0 Ethibond suture. The patch, which had also been soaked in 1% Ancef solution was now placed over the floor and secured medially and inferiorly to the pubic tubercle, continuing to Dave ligament and to the inguinal ligament. Superiorly, the mesh was secured to the transversalis fascia. All sutures were placed under direct vision and held with hemostats. Sutures were then tied down with the exception of a lateral stitch through the wings. The patient was given a Valsalva maneuver to 40 cm of water and the repair was solid. The lateral suture was then secured. The wound was irrigated with 1% Ancef solution and all fluid was aspirated. The cord was returned to its anatomic location and the testicle placed back into the scrotum. The external oblique fascia was then closed with 3-0 Vicryl. Darrel fascia was reapproximated with 3-0 Vicryl and the skin edges were reapproximated with subcuticular 4-0 Monocryl. The incision was then Steri-Stripped and dressed with a sterile Tegaderm pad. Sponge, needle, and instrument counts were all correct. Once the drapes were removed, the scrotum was examined and the right testicle was in appropriate position. Following emergence from anesthesia and extubation, the patient was taken to recovery room in stable condition. LORA / SUNNY /[id number]
[2019-05-28] MEDS: Lactated Ringers 1,000 ML IV SCH ×2 (15:23→19:06)
--- NOTE | 2019-05-28 16:23 | PCM.CONS ---
H&P History of Present Illness - General Date of Service: 05/28/19 Source of Information: Patient History Limitations: Reports: No Limitations - History of Present Illness Initial Comments - Free Text/Narative: 63-year-old male presented to ER today complaining of right inguinal pain. The pain had been bothering him for the past few weeks but was on and off. He came to the ER for evaluation after it became more painful earlier today. In the ER, patient was found to have right inguinal hernia that was non-reducible. General surgery was contacted and patient was taken to the OR for hernia repair. Internal medicine consulted for management of elevated blood pressure. Patient' s blood pressure was 198/114 mm Hg on admission and was ~160/80 after returning from surgery. Patient denies any past medical history. He reports the last time he saw a physician was a few years ago when he experienced some dizziness and took an unspecified medication for a few days and his symptoms resolved. Denies any history of hypertension, stroke, VA or diabetes. Non-smoker, denies illicit drug use and drinks alcohol socially. right lower abd Pain Score (Numeric/FACES): 8 - Related Data Allergies/Adverse Reactions: Allergies Allergy/AdvReac Type Severity Reaction Status Date / Time No Known Allergies Allergy Verified 05/28/19 15:27 Home Medications: Home Meds . [No Known Home Meds] 05/28/19 [History] Past Medical History - Past Health History Medical/Surgical History: Denies Medical/Surgical History - Past Surgical History Other Surgical History Comment: No past surgeries Social & Family History - Family History Family Medical History: Noncontributory - Tobacco Use Smoking Status *Q: Never Smoker - Recreational Drug Use Recreational Drug Use: No Exam - Vital Signs Vital Signs: Last Vital Signs Temp 98.1 F 05/28/19 16:05 Pulse 75 05/28/19 16:05 Resp 14 05/28/19 16:05 BP 159/88 H 05/28/19 16:05 Pulse Ox 97 05/28/19 16:05 Weight: 159 lb 2.78 oz - Patient Data Lab Results Last 24 hrs: Laboratory Results - last 24 hr 05/28/19 05/28/19 Range/Units 11:23 11:23 WBC 10.40 (4.0-11.0) K/uL RBC 5.15 (4.50-5.90) M/uL Hgb 14.9 (13.0-17.0) g/dL Hct 42.5 (38.0-50.0) % MCV 82.5 (80.0-98.0) fL MCH 28.9 (27.0-32.0) pg MCHC 35.1 (31.0-37.0) g/dL RDW Std Deviation 39.4 (28.0-62.0) fl RDW Coeff of Miguelito 13 (11.0-15.0) % Plt Count 255 (150-400) K/uL MPV 9.90 (7.40-12.00) fL Neut % (Auto) 88.0 H (48.0-80.0) % Lymph % (Auto) 9.2 L (16.0-40.0) % [place] % (Auto) 2.7 (0.0-15.0) % Eos % (Auto) 0.0 (0.0-7.0) % Baso % (Auto) 0.1 (0.0-1.5) % Neut # (Auto) 9.2 H (1.4-5.7) K/uL Lymph # (Auto) 1.0 (0.6-2.4) K/uL [place] # (Auto) 0.3 (0.0-0.8) K/uL Eos # (Auto) 0.0 (0.0-0.7) K/uL Baso # (Auto) 0.0 (0.0-0.1) K/uL Nucleated RBC % 0.0 /100WBC Nucleated RBCs # 0 K/uL Sodium 142 (136-148) mmol/L Potassium 3.6 (3.5-5.1) mmol/L Chloride 102 (98-107) mmol/L Carbon Dioxide 27.8 (21.0-32.0) mmol/L BUN 30 H (7.0-18.0) mg/dL Creatinine 1.3 (0.8-1.3) mg/dL Est Cr Clr Drug Dosing 60.94 mL/min Estimated GFR (MDRD) > 60.0 ml/min Glucose 129 H (74-106) mg/dL Calcium 8.8 (8.5-10.1) mg/dL Total Bilirubin 2.0 H (0.2-1.0) mg/dL AST 45 H (15-37) IU/L ALT 48 (14-63) IU/L Alkaline Phosphatase 109 (46-116) U/L Total Protein 8.6 H (6.4-8.2) g/dL Albumin 3.7 (3.4-5.0) g/dL Globulin 4.9 H (2.6-4.0) g/dL Albumin/Globulin Ratio 0.8 L (0.9-1.6) Result Diagrams: 05/28/19 11:23 05/28/19 11:23 Consult PN Assessment/Plan Procedures: Procedures AIRWAY INHALATION TREATMENT (07/06/17) ASSAY THYROID STIM HORMONE (07/11/17) COMPLETE CBC W/AUTO DIFF WBC (07/11/17) COMPREHEN METABOLIC PANEL (07/11/17) EMERGENCY DEPT VISIT (07/06/17) ROUTINE VENIPUNCTURE (07/11/17) THER/PROPH/DIAG INJ SC/IM (07/06/17) X-RAY EXAM CHEST 2 VIEWS (07/11/17)
--- NOTE | 2019-05-28 16:31 | PCM.HP.2 ---
<Palomo Brandt M - Last Filed: 05/28/19 16:26> H&P History of Present Illness - General Date of Service: 05/28/19 Source of Information: Patient History Limitations: Reports: No Limitations - History of Present Illness Initial Comments - Free Text/Narative: Consult Note: 63-year-old male presented to ER today complaining of right inguinal pain. The pain had been bothering him for the past few weeks but was on and off. He came to the ER for evaluation after it became more painful earlier today. In the ER, patient was found to have right inguinal hernia that was non-reducible. General surgery was contacted and patient was taken to the OR for hernia repair. Internal medicine consulted for management of elevated blood pressure. Patient' s blood pressure was 198/114 mm Hg on admission and was ~160/80 after returning from surgery. Patient denies any past medical history. He reports the last time he saw a physician was a few years ago when he experienced some dizziness and took an unspecified medication for a few days and his symptoms resolved. Denies any history of hypertension, stroke, OK or diabetes. Non-smoker, denies illicit drug use and drinks alcohol socially. Patient denies having any headache, blurry vision, nausea, shortness of breath or chest pain. right lower abd Pain Score (Numeric/FACES): 8 - Related Data Allergies/Adverse Reactions: Allergies Allergy/AdvReac Type Severity Reaction Status Date / Time No Known Allergies Allergy Verified 05/28/19 15:27 Home Medications: Home Meds . [No Known Home Meds] 05/28/19 [History] Past Medical History - Past Health History Medical/Surgical History: Denies Medical/Surgical History - Past Surgical History Other Surgical History Comment: No past surgeries Social & Family History - Family History Family Medical History: Noncontributory - Tobacco Use Smoking Status *Q: Never Smoker - Recreational Drug Use Recreational Drug Use: No H&P Review of Systems - Review of Systems: Review Of Systems: Comprehensive ROS is negative, except as noted in HPI. Exam - Exam Exam: See Below - Vital Signs Vital Signs: Last Vital Signs Temp 98.1 F 05/28/19 16:05 Pulse 75 05/28/19 16:05 Resp 14 05/28/19 16:05 BP 159/88 H 05/28/19 16:05 Pulse Ox 97 05/28/19 16:05 Weight: 72.2 kg - Exam General: Alert, Oriented, Cooperative HEENT: Conjunctiva Clear, EOMI, Hearing Intact, Mucosa Moist & [place], Posterior Pharynx Clear Neck: Supple, Trachea Midline Lungs: Clear to Auscultation, Normal Respiratory Effort Cardiovascular: Regular Rate, Regular Rhythm GI/Abdominal Exam: Normal Bowel Sounds, Soft, No Distention, Other (mild ttp) Extremities: Normal Inspection, Non-Tender, No Pedal Edema Peripheral Pulses: 2+: Posterior Tibial (L), Posterior Tibial (R) Skin: Warm, Dry, Intact Neurological: Cranial Nerves Intact, Strength Equal Bilateral, Normal Speech, Normal Tone Neuro Extensive - Mental Status: Alert, Oriented x3, Normal Mood/Affect - Patient Data Lab Results Last 24 hrs: Laboratory Results - last 24 hr 05/28/19 05/28/19 Range/Units 11:23 11:23 WBC 10.40 (4.0-11.0) K/uL RBC 5.15 (4.50-5.90) M/uL Hgb 14.9 (13.0-17.0) g/dL Hct 42.5 (38.0-50.0) % MCV 82.5 (80.0-98.0) fL MCH 28.9 (27.0-32.0) pg MCHC 35.1 (31.0-37.0) g/dL RDW Std Deviation 39.4 (28.0-62.0) fl RDW Coeff of Miguelito 13 (11.0-15.0) % Plt Count 255 (150-400) K/uL MPV 9.90 (7.40-12.00) fL Neut % (Auto) 88.0 H (48.0-80.0) % Lymph % (Auto) 9.2 L (16.0-40.0) % Moore % (Auto) 2.7 (0.0-15.0) % Eos % (Auto) 0.0 (0.0-7.0) % Baso % (Auto) 0.1 (0.0-1.5) % Neut # (Auto) 9.2 H (1.4-5.7) K/uL Lymph # (Auto) 1.0 (0.6-2.4) K/uL Moore # (Auto) 0.3 (0.0-0.8) K/uL Eos # (Auto) 0.0 (0.0-0.7) K/uL Baso # (Auto) 0.0 (0.0-0.1) K/uL Nucleated RBC % 0.0 /100WBC Nucleated RBCs # 0 K/uL Sodium 142 (136-148) mmol/L Potassium 3.6 (3.5-5.1) mmol/L Chloride 102 (98-107) mmol/L Carbon Dioxide 27.8 (21.0-32.0) mmol/L BUN 30 H (7.0-18.0) mg/dL Creatinine 1.3 (0.8-1.3) mg/dL Est Cr Clr Drug Dosing 60.94 mL/min Estimated GFR (MDRD) > 60.0 ml/min Glucose 129 H (74-106) mg/dL Calcium 8.8 (8.5-10.1) mg/dL Total Bilirubin 2.0 H (0.2-1.0) mg/dL AST 45 H (15-37) IU/L ALT 48 (14-63) IU/L Alkaline Phosphatase 109 (46-116) U/L Total Protein 8.6 H (6.4-8.2) g/dL Albumin 3.7 (3.4-5.0) g/dL Globulin 4.9 H (2.6-4.0) g/dL Albumin/Globulin Ratio 0.8 L (0.9-1.6) Result Diagrams: 05/28/19 11:23 05/28/19 11:23 Problem List Initiated/Reviewed/Updated: Yes Orders Last 24hrs: Active Orders 24 hr Category Date Time Status Patient Status [ADT] Routine ADT 05/28/19 14:25 Active Antiembolic Devices [RC] PER UNIT ROUTINE Care 05/28/19 12:00 Active EKG Documentation Completion [RC] STAT Care 05/28/19 11:24 Active Intake and Output [RC] QSHIFT Care 05/28/19 14:26 Active Notify Provider Consults [RC] ASDIRECTED Care 05/28/19 11:30 Active Notify Provider Consults [RC] ASDIRECTED Care 05/28/19 14:35 Active Oxygen Therapy [RC] ASDIRECTED Care 05/28/19 12:00 Active Oxygen Therapy [RC] PRN Care 05/28/19 14:25 Active Pulse Oximetry [RC] ASDIRECTED Care 05/28/19 12:00 Active Skin Preparation [RC] ASDIRECTED Care 05/28/19 12:00 Active Up ad Katie [RC] ASDIRECTED Care 05/28/19 14:25 Active Vital Signs [RC] Q1H Care 05/28/19 12:00 Active Consult to Physician [CONS] Routine Cons 05/28/19 14:32 Active Advance Diet Instructions [DIET] Diet 05/28/19 Dinner Active UA RFX MARGOT AND CULT IF INDIC [URIN] Stat Lab 05/28/19 11:20 Ordered Acetaminophen/HYDROcodone [Burke 325-10 MG] Med 05/28/19 14:25 Active 1 tab PO Q4H PRN Acetaminophen/HYDROcodone [Burke 325-5 MG] Med 05/28/19 14:25 Active 1 tab PO Q4H PRN Benzocaine/Cetylpyrd/Menthol [Cepacol Sore Throat] Med 05/28/19 14:25 Active 1 lozenge MUCMEM Q1H PRN Docusate Sodium/Sennosides [Senna Plus] Med 05/28/19 21:00 Active 1 tab PO BID HYDROmorphone [Dilaudid] Med 05/28/19 14:25 Active 0.5 mg IVPUSH Q1H PRN Ketorolac [Toradol] Med 05/28/19 16:00 Active 30 mg IVPUSH Q6H Lactated Ringers [Ringers, Lactated] 1,000 ml Med 05/28/19 14:30 Active IV ASDIRECTED Ondansetron [Zofran] Med 05/28/19 14:25 Active 4 mg IVPUSH Q4H PRN diphenhydrAMINE [Benadryl] Med 05/28/19 14:25 Active 25 mg IVPUSH Q4H PRN Antiembolic Hose [OM.PC] Routine Oth 05/28/19 12:00 Ordered Sequential Compression Device [OM.PC] Routine Oth 05/28/19 12:00 Ordered Resuscitation Status Routine Resus Stat 05/28/19 12:00 Ordered Medication Orders Hydrocodone Bitart/Acetaminophen (Burke 325-5 Mg) 1 tab PO Q4H PRN PRN Reason: Pain (moderate 4-6) Hydrocodone Bitart/Acetaminophen (Burke 325-10 Mg) 1 tab PO Q4H PRN PRN Reason: Pain (severe 7-10) Benzocaine/Menthol (Cepacol Sore Throat) 1 lozenge MUCMEM Q1H PRN PRN Reason: Sore Throat Diphenhydramine HCl (Benadryl) 25 mg IVPUSH Q4H PRN PRN Reason: Itching Hydromorphone HCl (Dilaudid) 0.5 mg IVPUSH Q1H PRN PRN Reason: Pain Lactated Ringer's (Ringers, Lactated) 1,000 mls @ 100 mls/hr IV ASDIRECTED [facility] Last Admin: 05/28/19 15:23 Dose: 100 mls/hr Ketorolac Tromethamine (Toradol) 30 mg IVPUSH Q6H [facility] Stop: 05/29/19 10:01 Ondansetron HCl (Zofran) 4 mg IVPUSH Q4H PRN PRN Reason: Nausea/Vomiting Senna/Docusate Sodium (Senna Plus) 1 tab PO BID [facility] Assessment/Plan Comment:: Assessment: 1. Right incarcerated inguinal hernia s/p repair POD#0. 2. Elevated blood pressures. Plan: 1. For elevated blood pressures, will continue to monitor. Patient's blood pressures have been downtrending since returning from surgery and if his blood pressures stay elevated then will consider starting patient on anti- hypertensive medication such as amlodipine. Will continue to follow. <River Rodrigues - Last Filed: 05/28/19 20:11> H&P History of Present Illness - General Admit Problem/Dx: Admission Diagnosis/Problem Admission Diagnosis/Problem Incarcerated right inguinal hernia Exam - Vital Signs Vital Signs: Last Vital Signs Temp 36.6 C 05/28/19 19:05 Pulse 80 05/28/19 19:05 Resp 16 05/28/19 19:05 BP 175/88 H 05/28/19 19:05 Pulse Ox 97 05/28/19 19:05 - Patient Data Lab Results Last 24 hrs: Laboratory Results - last 24 hr 05/28/19 05/28/19 05/28/19 Range/Units 11:23 11:23 17:45 WBC 10.40 (4.0-11.0) K/uL RBC 5.15 (4.50-5.90) M/uL Hgb 14.9 (13.0-17.0) g/dL Hct 42.5 (38.0-50.0) % MCV 82.5 (80.0-98.0) fL MCH 28.9 (27.0-32.0) pg MCHC 35.1 (31.0-37.0) g/dL RDW Std Deviation 39.4 (28.0-62.0) fl RDW Coeff of Miguelito 13 (11.0-15.0) % Plt Count 255 (150-400) K/uL MPV 9.90 (7.40-12.00) fL Neut % (Auto) 88.0 H (48.0-80.0) % Lymph % (Auto) 9.2 L (16.0-40.0) % Moore % (Auto) 2.7 (0.0-15.0) % Eos % (Auto) 0.0 (0.0-7.0) % Baso % (Auto) 0.1 (0.0-1.5) % Neut # (Auto) 9.2 H (1.4-5.7) K/uL Lymph # (Auto) 1.0 (0.6-2.4) K/uL Moore # (Auto) 0.3 (0.0-0.8) K/uL Eos # (Auto) 0.0 (0.0-0.7) K/uL Baso # (Auto) 0.0 (0.0-0.1) K/uL Nucleated RBC % 0.0 /100WBC Nucleated RBCs # 0 K/uL Sodium 142 (136-148) mmol/L Potassium 3.6 (3.5-5.1) mmol/L Chloride 102 (98-107) mmol/L Carbon Dioxide 27.8 (21.0-32.0) mmol/L BUN 30 H (7.0-18.0) mg/dL Creatinine 1.3 (0.8-1.3) mg/dL Est Cr Clr Drug Dosing 60.94 mL/min Estimated GFR (MDRD) > 60.0 ml/min Glucose 129 H (74-106) mg/dL Calcium 8.8 (8.5-10.1) mg/dL Total Bilirubin 2.0 H (0.2-1.0) mg/dL AST 45 H (15-37) IU/L ALT 48 (14-63) IU/L Alkaline Phosphatase 109 (46-116) U/L Total Protein 8.6 H (6.4-8.2) g/dL Albumin 3.7 (3.4-5.0) g/dL Globulin 4.9 H (2.6-4.0) g/dL Albumin/Globulin Ratio 0.8 L (0.9-1.6) Urine Color YELLOW Urine Appearance CLEAR Urine pH 6.0 (5.0-8.0) Ur Specific [place] >= 1.030 (1.001-1.035) Urine Protein 30 H (NEGATIVE) mg/dL Urine Glucose (UA) NEGATIVE (NEGATIVE) mg/dL Urine Ketones NEGATIVE (NEGATIVE) mg/dL Urine Occult Blood NEGATIVE (NEGATIVE) Urine Nitrite NEGATIVE (NEGATIVE) Urine Bilirubin NEGATIVE (NEGATIVE) Urine Urobilinogen 0.2 (<2.0) EU/dL Ur Leukocyte Esterase NEGATIVE (NEGATIVE) Urine RBC NONE SEEN (0-2/HPF) Urine WBC 0-1 (0-5/HPF) Ur Epithelial Cells OCCASIONAL (NONE-FEW) Urine Bacteria FEW (NEGATIVE) Urine Mucus LIGHT (NONE-MOD) Result Diagrams: 05/28/19 11:23 05/28/19 11:23 Orders Last 24hrs: Active Orders 24 hr Category Date Time Status Patient Status [ADT] Routine ADT 05/28/19 14:25 Active Antiembolic Devices [RC] PER UNIT ROUTINE Care 05/28/19 12:00 Active Intake and Output [RC] Q12H Care 05/28/19 14:26 Active Notify Provider Consults [RC] ASDIRECTED Care 05/28/19 11:30 Active Notify Provider Consults [RC] ASDIRECTED Care 05/28/19 14:35 Active Oxygen Therapy [RC] ASDIRECTED Care 05/28/19 12:00 Active Oxygen Therapy [RC] PRN Care 05/28/19 14:25 Active Pulse Oximetry [RC] ASDIRECTED Care 05/28/19 12:00 Active Skin Preparation [RC] ASDIRECTED Care 05/28/19 12:00 Active Up ad Katie [RC] ASDIRECTED Care 05/28/19 14:25 Active Consult to Physician [CONS] Routine Cons 05/28/19 14:32 Active Advance Diet Instructions [DIET] Diet 05/28/19 Dinner Active Acetaminophen/HYDROcodone [Burke 325-10 MG] Med 05/28/19 14:25 Active 1 tab PO Q4H PRN Acetaminophen/HYDROcodone [Burke 325-5 MG] Med 05/28/19 14:25 Active 1 tab PO Q4H PRN Benzocaine/Cetylpyrd/Menthol [Cepacol Sore Throat] Med 05/28/19 14:25 Active 1 lozenge MUCMEM Q1H PRN Docusate Sodium/Sennosides [Senna Plus] Med 05/28/19 21:00 Active 1 tab PO BID HYDROmorphone [Dilaudid] Med 05/28/19 14:25 Active 0.5 mg IVPUSH Q1H PRN Ketorolac [Toradol] Med 05/28/19 16:00 Active 30 mg IVPUSH Q6H Labetalol [Normodyne] Med 05/28/19 19:20 Active 10 mg IVPUSH Q6H PRN Lactated Ringers [Ringers, Lactated] 1,000 ml Med 05/28/19 14:30 Active IV ASDIRECTED Ondansetron [Zofran] Med 05/28/19 14:25 Active 4 mg IVPUSH Q4H PRN amLODIPine [Norvasc] Med 05/28/19 19:15 Active 5 mg PO DAILY diphenhydrAMINE [Benadryl] Med 05/28/19 14:25 Active 25 mg IVPUSH Q4H PRN Antiembolic Hose [OM.PC] Routine Oth 05/28/19 12:00 Ordered Sequential Compression Device [OM.PC] Routine Oth 05/28/19 12:00 Ordered Resuscitation Status Routine Resus Stat 05/28/19 12:00 Ordered Medication Orders Hydrocodone Bitart/Acetaminophen (Burke 325-5 Mg) 1 tab PO Q4H PRN PRN Reason: Pain (moderate 4-6) Hydrocodone Bitart/Acetaminophen (Burke 325-10 Mg) 1 tab PO Q4H PRN PRN Reason: Pain (severe 7-10) Amlodipine Besylate (Norvasc) 5 mg PO DAILY SONIYA Benzocaine/Menthol (Cepacol Sore Throat) 1 lozenge MUCMEM Q1H PRN PRN Reason: Sore Throat Diphenhydramine HCl (Benadryl) 25 mg IVPUSH Q4H PRN PRN Reason: Itching Hydromorphone HCl (Dilaudid) 0.5 mg IVPUSH Q1H PRN PRN Reason: Pain Lactated Ringer's (Ringers, Lactated) 1,000 mls @ 100 mls/hr IV ASDIRECTED [facility] Last Admin: 05/28/19 19:06 Dose: 100 mls/hr Infusion: 05/28/19 19:06 Dose: 100 mls/hr Admin: 05/28/19 15:23 Dose: 100 mls/hr Ketorolac Tromethamine (Toradol) 30 mg IVPUSH Q6H [facility] Stop: 05/29/19 10:01 Last Admin: 05/28/19 16:36 Dose: 30 mg Labetalol HCl (Normodyne) 10 mg IVPUSH Q6H PRN; Protocol PRN Reason: Other Ondansetron HCl (Zofran) 4 mg IVPUSH Q4H PRN PRN Reason: Nausea/Vomiting Senna/Docusate Sodium (Senna Plus) 1 tab PO BID [facility] Assessment/Plan Comment:: I performed a history and physical exam of the patient and discussed management with resident. I have reviewed the residents note and agree with documented findings and plan unless otherwise specified in my note.
[2019-05-28] MEDS: Ketorolac 30 MG/ML SDV IVPUSH SCH ×2 (16:36→23:06)
[2019-05-28] MEDS ORDERED: Labetalol 100 MG/20 ML MDV IVPUSH PRN (19:20)
[2019-05-28] MEDS: amLODIPine 5 MG Tab PO SCH (20:23)
[2019-05-29] MEDS: Ketorolac 30 MG/ML SDV IVPUSH SCH ×2 (04:15→09:35)
[2019-05-29] MEDS: amLODIPine 5 MG Tab PO SCH (09:31)
[2019-05-29] MEDS: Lactated Ringers 1,000 ML IV SCH (09:43)
[2019-05-29] MEDS ORDERED: FLU Vacc QS2019-20(6MOS+)/PF 60 MCG/0.5 ML SYRINGE IM ONE (10:00)
[2019-05-29 10:11] LABS: HEMOGLOBIN A1C 5.2 % (4.5-6.2)
[2019-05-29 10:30] LABS: BLOOD UREA NITROGEN,BUN 18 mg/dL (7.0-18.0); CARBON DIOXIDE,CO2 31.1 mmol/L (21.0-32.0); CHLORIDE,CL 101 mmol/L (98-107); GLUCOSE RANDOM 141 mg/dL (74-106); POTASSIUM,K 3.9 mmol/L (3.5-5.1); SODIUM,NA 138 mmol/L (136-148)
--- NOTE | 2019-05-29 10:31 | PCM.SURGPN ---
- General Info Date of Service: 05/29/19 POD#: 1 Post-Op Diagnosis: Incarcerated Right inguinal hernia Functional Status: Reports: Pain Controlled, Tolerating Diet, Ambulating, Urinating - Review of Systems General: Denies: Fever, Weakness, Fatigue HEENT: Reports: No Symptoms Pulmonary: Denies: Shortness of Breath, Cough Cardiovascular: Denies: Chest Pain, Edema Gastrointestinal: Denies: Abdominal Pain, Constipation, Diarrhea, Nausea, Vomiting Genitourinary: Denies: Dysuria, Frequency, Burning - Patient Data Vitals - Most Recent: Last Vital Signs Temp 98.6 F 05/29/19 07:35 Pulse 69 05/29/19 07:35 Resp 16 05/29/19 07:35 BP 139/71 05/29/19 09:31 Pulse Ox 98 05/29/19 07:35 Weight - Most Recent: 159 lb 2.78 oz I&O - Last 24 Hours: Intake & Output 05/28/19 05/29/19 05/29/19 22:59 06:59 14:59 Intake Total 1589 Output Total 600 Balance 989 Lab Results Last 24 Hrs: Laboratory Results - last 24 hr 05/28/19 05/28/19 05/28/19 Range/Units 11:23 11:23 17:45 WBC 10.40 (4.0-11.0) K/uL RBC 5.15 (4.50-5.90) M/uL Hgb 14.9 (13.0-17.0) g/dL Hct 42.5 (38.0-50.0) % MCV 82.5 (80.0-98.0) fL MCH 28.9 (27.0-32.0) pg MCHC 35.1 (31.0-37.0) g/dL RDW Std Deviation 39.4 (28.0-62.0) fl RDW Coeff of Miguelito 13 (11.0-15.0) % Plt Count 255 (150-400) K/uL MPV 9.90 (7.40-12.00) fL Neut % (Auto) 88.0 H (48.0-80.0) % Lymph % (Auto) 9.2 L (16.0-40.0) % [place]oke % (Auto) 2.7 (0.0-15.0) % Eos % (Auto) 0.0 (0.0-7.0) % Baso % (Auto) 0.1 (0.0-1.5) % Neut # (Auto) 9.2 H (1.4-5.7) K/uL Lymph # (Auto) 1.0 (0.6-2.4) K/uL [place] # (Auto) 0.3 (0.0-0.8) K/uL Eos # (Auto) 0.0 (0.0-0.7) K/uL Baso # (Auto) 0.0 (0.0-0.1) K/uL Nucleated RBC % 0.0 /100WBC Nucleated RBCs # 0 K/uL Sodium 142 (136-148) mmol/L Potassium 3.6 (3.5-5.1) mmol/L Chloride 102 (98-107) mmol/L Carbon Dioxide 27.8 (21.0-32.0) mmol/L BUN 30 H (7.0-18.0) mg/dL Creatinine 1.3 (0.8-1.3) mg/dL Est Cr Clr Drug Dosing 60.94 mL/min Estimated GFR (MDRD) > 60.0 ml/min Glucose 129 H (74-106) mg/dL Hemoglobin A1c (4.5-6.2) % Calcium 8.8 (8.5-10.1) mg/dL Total Bilirubin 2.0 H (0.2-1.0) mg/dL AST 45 H (15-37) IU/L ALT 48 (14-63) IU/L Alkaline Phosphatase 109 (46-116) U/L Total Protein 8.6 H (6.4-8.2) g/dL Albumin 3.7 (3.4-5.0) g/dL Globulin 4.9 H (2.6-4.0) g/dL Albumin/Globulin Ratio 0.8 L (0.9-1.6) Urine Color YELLOW Urine Appearance CLEAR Urine pH 6.0 (5.0-8.0) Ur Specific [place] >= 1.030 (1.001-1.035) Urine Protein 30 H (NEGATIVE) mg/dL Urine Glucose (UA) NEGATIVE (NEGATIVE) mg/dL Urine Ketones NEGATIVE (NEGATIVE) mg/dL Urine Occult Blood NEGATIVE (NEGATIVE) Urine Nitrite NEGATIVE (NEGATIVE) Urine Bilirubin NEGATIVE (NEGATIVE) Urine Urobilinogen 0.2 (<2.0) EU/dL Ur Leukocyte Esterase NEGATIVE (NEGATIVE) Urine RBC NONE SEEN (0-2/HPF) Urine WBC 0-1 (0-5/HPF) Ur Epithelial Cells OCCASIONAL (NONE-FEW) Urine Bacteria FEW (NEGATIVE) Urine Mucus LIGHT (NONE-MOD) 05/29/19 Range/Units 09:50 WBC (4.0-11.0) K/uL RBC (4.50-5.90) M/uL Hgb (13.0-17.0) g/dL Hct (38.0-50.0) % MCV (80.0-98.0) fL MCH (27.0-32.0) pg MCHC (31.0-37.0) g/dL RDW Std Deviation (28.0-62.0) fl RDW Coeff of Miguelito (11.0-15.0) % Plt Count (150-400) K/uL MPV (7.40-12.00) fL Neut % (Auto) (48.0-80.0) % Lymph % (Auto) (16.0-40.0) % [place] % (Auto) (0.0-15.0) % Eos % (Auto) (0.0-7.0) % Baso % (Auto) (0.0-1.5) % Neut # (Auto) (1.4-5.7) K/uL Lymph # (Auto) (0.6-2.4) K/uL [place] # (Auto) (0.0-0.8) K/uL Eos # (Auto) (0.0-0.7) K/uL Baso # (Auto) (0.0-0.1) K/uL Nucleated RBC % /100WBC Nucleated RBCs # K/uL Sodium (136-148) mmol/L Potassium (3.5-5.1) mmol/L Chloride (98-107) mmol/L Carbon Dioxide (21.0-32.0) mmol/L BUN (7.0-18.0) mg/dL Creatinine (0.8-1.3) mg/dL Est Cr Clr Drug Dosing mL/min Estimated GFR (MDRD) ml/min Glucose (74-106) mg/dL Hemoglobin A1c 5.2 (4.5-6.2) % Calcium (8.5-10.1) mg/dL Total Bilirubin (0.2-1.0) mg/dL AST (15-37) IU/L ALT (14-63) IU/L Alkaline Phosphatase (46-116) U/L Total Protein (6.4-8.2) g/dL Albumin (3.4-5.0) g/dL Globulin (2.6-4.0) g/dL Albumin/Globulin Ratio (0.9-1.6) Urine Color Urine Appearance Urine pH (5.0-8.0) Ur Specific [place] (1.001-1.035) Urine Protein (NEGATIVE) mg/dL Urine Glucose (UA) (NEGATIVE) mg/dL Urine Ketones (NEGATIVE) mg/dL Urine Occult Blood (NEGATIVE) Urine Nitrite (NEGATIVE) Urine Bilirubin (NEGATIVE) Urine Urobilinogen (<2.0) EU/dL Ur Leukocyte Esterase (NEGATIVE) Urine RBC (0-2/HPF) Urine WBC (0-5/HPF) Ur Epithelial Cells (NONE-FEW) Urine Bacteria (NEGATIVE) Urine Mucus (NONE-MOD) Med Orders - Current: Current Medications Hydrocodone Bitart/Acetaminophen ([place] 325-5 Mg) 1 tab PO Q4H PRN PRN Reason: Pain (moderate 4-6) Hydrocodone Bitart/Acetaminophen ([place] 325-10 Mg) 1 tab PO Q4H PRN PRN Reason: Pain (severe 7-10) Amlodipine Besylate (Norvasc) 5 mg PO DAILY [facility] [place] Last Admin: 05/29/19 09:31 Dose: 5 mg Benzocaine/Menthol (Cepacol Sore Throat) 1 lozenge MUCMEM Q1H PRN PRN Reason: Sore Throat Diphenhydramine HCl (Benadryl) 25 mg IVPUSH Q4H PRN PRN Reason: Itching Hydromorphone HCl (Dilaudid) 0.5 mg IVPUSH Q1H PRN PRN Reason: Pain Lactated Ringer's (Ringers, Lactated) 1,000 mls @ 100 mls/hr IV ASDIRECTED [facility] [place] Last Admin: 05/29/19 09:43 Dose: 100 mls/hr Labetalol HCl (Normodyne) 10 mg IVPUSH Q6H PRN; Protocol PRN Reason: Other Ondansetron HCl (Zofran) 4 mg IVPUSH Q4H PRN PRN Reason: Nausea/Vomiting Senna/Docusate Sodium (Senna Plus) 1 tab PO BID [facility] [place] Last Admin: 05/29/19 09:34 Dose: 1 tab Discontinued Medications Bupivacaine HCl (Sensorcaine-Mpf 0.5%) Confirm Administered Dose 10 ml .ROUTE .STK-MED ONE Stop: 05/28/19 12:00 Bupivacaine HCl (Sensorcaine-Mpf 0.5%) Confirm Administered Dose 10 ml .ROUTE .STK-MED ONE Stop: 05/28/19 14:02 Cefazolin Sodium (Ancef) Confirm Administered Dose 1 gm .ROUTE .STK-MED ONE Stop: 05/28/19 12:00 Etomidate (Amidate) 40 mg IVPUSH .STK-MED ONE Stop: 05/28/19 11:39 Fentanyl (Sublimaze) Confirm Administered Dose 250 mcg .ROUTE .STK-MED ONE Stop: 05/28/19 11:59 Fentanyl (Sublimaze) 50 mcg IVPUSH Q5M PRN PRN Reason: Pain Fentanyl (Sublimaze) 50 mcg IVPUSH ONETIME ONE Stop: 05/28/19 12:08 Last Admin: 05/28/19 15:24 Dose: Not Given Fentanyl (Sublimaze) Confirm Administered Dose 100 mcg .ROUTE .STK-MED ONE Stop: 05/28/19 14:01 Glycopyrrolate (Robinul) Confirm Administered Dose 0.2 mg .ROUTE .STK-MED ONE Stop: 05/28/19 12:01 Sodium Chloride (Normal Saline) 1,000 mls @ 999 mls/hr IV STAT ONE Stop: 05/28/19 12:20 Last Admin: 05/28/19 11:40 Dose: Not Given Lactated Ringer's (Ringers, Lactated) 1,000 mls @ 100 mls/hr IV ASDIRECTED [facility] [place] Last Admin: 05/28/19 11:39 Dose: 100 mls/hr Cefazolin Sodium/Dextrose 2 gm (/ Premix) 50 mls @ 100 mls/hr IV ONETIME ONE Stop: 05/28/19 12:23 Last Admin: 05/28/19 12:05 Dose: 100 mls/hr Lactated Ringer's (Ringers, Lactated) 1,000 mls @ 125 mls/hr IV ASDIRECTED [facility] [place] Influenza Virus Vaccine (Pharmacy To Dose - Influenza Vaccine) 1 each IM ONETIME ONE Stop: 05/29/19 04:08 Influenza Virus Vaccine (Fluzone Quad [id number] Syringe) 60 mcg IM .ONCE ONE Stop: 05/29/19 10:01 Ketorolac Tromethamine (Toradol) Confirm Administered Dose 30 mg .ROUTE .STK- MED ONE Stop: 05/28/19 12:01 Ketorolac Tromethamine (Toradol) 30 mg IM Q6H [facility] [place] Stop: 05/29/19 08:31 Last Admin: 05/28/19 16:11 Dose: Not Given Ketorolac Tromethamine (Toradol) 30 mg IVPUSH Q6H [facility] [place] Stop: 05/29/19 10:01 Last Admin: 05/29/19 09:35 Dose: 30 mg Midazolam HCl (Versed 1 Mg/Ml) Confirm Administered Dose 2 mg .ROUTE .STK-MED ONE Stop: 05/28/19 11:59 Morphine Sulfate (Morphine) 2 mg IVPUSH ONETIME ONE Stop: 05/28/19 11:28 Last Admin: 05/28/19 11:39 Dose: 2 mg Ondansetron HCl (Zofran) 4 mg IVPUSH ONETIME ONE Stop: 05/28/19 11:28 Last Admin: 05/28/19 11:39 Dose: 4 mg Ondansetron HCl (Zofran) Confirm Administered Dose 4 mg .ROUTE .STK-MED ONE Stop: 05/28/19 12:01 Ondansetron HCl (Zofran) 4 mg IVPUSH Q4H PRN PRN Reason: Nausea Phenylephrine HCl (Phenylephrine In Ns 100 Mcg/Ml) Confirm Administered Dose 1 mg .ROUTE .STK-MED ONE Stop: 05/28/19 12:43 Propofol (Diprivan 20 Ml) Confirm Administered Dose 200 mg .ROUTE .STK-MED ONE Stop: 05/28/19 11:59 Rocuronium [place] (Zemuron) Confirm Administered Dose 100 mg .ROUTE .STK-MED ONE Stop: 05/28/19 12:01 Succinylcholine Chloride (Succinylcholine Chloride) Confirm Administered Dose 200 mg .ROUTE .STK-MED ONE Stop: 05/28/19 12:01 Sugammadex Sodium (Bridion) Confirm Administered Dose 200 mg .ROUTE .STK-MED ONE Stop: 05/28/19 12:04 - Exam Wound/Incisions: Dressing Dry and Intact General: Alert, Oriented, Cooperative HEENT: Pupils Equal, EOMI Lungs: Clear to Auscultation, Normal Respiratory Effort Cardiovascular: Regular Rate, Regular Rhythm GI/Abdominal Exam: Normal Bowel Sounds, Soft, Non-Tender, No Distention Extremities: Normal Inspection, No Pedal Edema Skin: Warm, Dry, Intact Psy/Mental Status: Alert, Normal Affect, Normal Mood - Problem List & Annotations (1) Incarcerated right inguinal hernia SNOMED Code(s): 594498964 Code(s): K40.30 - UNIL INGUINAL HERNIA, W OBST, W/O GANGR, NOT SPCF RECUR Status: Acute Priority: High Current Visit: Yes - Problem List Review Problem List Initiated/Reviewed/Updated: Yes - My Orders Last 24 Hours: Active Orders 24 hr Category Date Time Status Patient Status [ADT] Routine ADT 05/28/19 14:25 Active Antiembolic Devices [RC] PER UNIT ROUTINE Care 05/28/19 12:00 Active Influenza Vaccine Charge [RC] .DISCHARGE Care 05/29/19 04:08 Active Intake and Output [RC] Q12H Care 05/28/19 14:26 Active Notify Provider Consults [RC] ASDIRECTED Care 05/28/19 11:30 Active Notify Provider Consults [RC] ASDIRECTED Care 05/28/19 14:35 Active Oxygen Therapy [RC] ASDIRECTED Care 05/28/19 12:00 Active Oxygen Therapy [RC] PRN Care 05/28/19 14:25 Active Pulse Oximetry [RC] ASDIRECTED Care 05/28/19 12:00 Active Skin Preparation [RC] ASDIRECTED Care 05/28/19 12:00 Active Up ad Katie [RC] ASDIRECTED Care 05/28/19 14:25 Active Consult to Physician [CONS] Routine Cons 05/28/19 14:32 Active Regular Diet [DIET] Diet 05/29/19 Breakfast Active BASIC METABOLIC PANEL,BMP [CHEM] Routine Lab 05/29/19 09:50 Received LIPID PANEL [CHEM] Routine Lab 05/29/19 09:50 Received TSH [CHEM] Routine Lab 05/29/19 09:50 Received Acetaminophen/HYDROcodone [[place] 325-10 MG] Med 05/28/19 14:25 Active 1 tab PO Q4H PRN Acetaminophen/HYDROcodone [[place] 325-5 MG] Med 05/28/19 14:25 Active 1 tab PO Q4H PRN Benzocaine/Cetylpyrd/Menthol [Cepacol Sore Throat] Med 05/28/19 14:25 Active 1 lozenge MUCMEM Q1H PRN Docusate Sodium/Sennosides [Senna Plus] Med 05/28/19 21:00 Active 1 tab PO BID HYDROmorphone [Dilaudid] Med 05/28/19 14:25 Active 0.5 mg IVPUSH Q1H PRN Labetalol [Normodyne] Med 05/28/19 19:20 Active 10 mg IVPUSH Q6H PRN Lactated Ringers [Ringers, Lactated] 1,000 ml Med 05/28/19 14:30 Active IV ASDIRECTED Ondansetron [Zofran] Med 05/28/19 14:25 Active 4 mg IVPUSH Q4H PRN amLODIPine [Norvasc] Med 05/28/19 19:15 Active 5 mg PO DAILY diphenhydrAMINE [Benadryl] Med 05/28/19 14:25 Active 25 mg IVPUSH Q4H PRN Antiembolic Hose [OM.PC] Routine Oth 05/28/19 12:00 Ordered Sequential Compression Device [OM.PC] Routine Oth 05/28/19 12:00 Ordered Resuscitation Status Routine Resus Stat 05/28/19 12:00 Ordered Medication Orders Hydrocodone Bitart/Acetaminophen ([place] 325-5 Mg) 1 tab PO Q4H PRN PRN Reason: Pain (moderate 4-6) Hydrocodone Bitart/Acetaminophen ([place] 325-10 Mg) 1 tab PO Q4H PRN PRN Reason: Pain (severe 7-10) Amlodipine Besylate (Norvasc) 5 mg PO DAILY [facility] Last Admin: 05/29/19 09:31 Dose: 5 mg Admin: 05/28/19 20:23 Dose: 5 mg Benzocaine/Menthol (Cepacol Sore Throat) 1 lozenge MUCMEM Q1H PRN PRN Reason: Sore Throat Diphenhydramine HCl (Benadryl) 25 mg IVPUSH Q4H PRN PRN Reason: Itching Hydromorphone HCl (Dilaudid) 0.5 mg IVPUSH Q1H PRN PRN Reason: Pain Lactated Ringer's (Ringers, Lactated) 1,000 mls @ 100 mls/hr IV ASDIRECTED [facility] [place] Last Admin: 05/29/19 09:43 Dose: 100 mls/hr Infusion: 05/29/19 05:06 Dose: 100 mls/hr Admin: 05/28/19 19:06 Dose: 100 mls/hr Infusion: 05/28/19 19:06 Dose: 100 mls/hr Admin: 05/28/19 15:23 Dose: 100 mls/hr Labetalol HCl (Normodyne) 10 mg IVPUSH Q6H PRN; Protocol PRN Reason: Other Ondansetron HCl (Zofran) 4 mg IVPUSH Q4H PRN PRN Reason: Nausea/Vomiting Senna/Docusate Sodium (Senna Plus) 1 tab PO BID [facility] Last Admin: 05/29/19 09:34 Dose: 1 tab Admin: 05/28/19 20:23 Dose: 1 tab - Assessment Assessment (Free Text/Narrative):: 63 yr old male that is POD#1 s/p open right inguinal hernia repair with mesh for incarcerated right inguinal hernia. Doing well post-operatively. Tolerating diet and pain is controlled. Plan for Discharge home today. - Plan Plan (Free Text/Narrative):: -Discharge home today -No lifting more than 25 lbs for the next 6 weeks -Follow up appointment in 10 days -will give work note
--- NOTE | 2019-05-29 11:45 | PCM.CONSN ---
<Palomo Brandt - Last Filed: 05/29/19 11:42> - General Info Date of Service: 05/29/19 Subjective Update: Patient reports no shortness of breath, tolerating PO diet well and reports pain well controlled. - Patient Data Vitals - Most Recent: Last Vital Signs Temp 98.6 F 05/29/19 07:35 Pulse 69 05/29/19 07:35 Resp 16 05/29/19 07:35 BP 139/71 05/29/19 09:31 Pulse Ox 98 05/29/19 07:35 Weight - Most Recent: 72.2 kg I&O - Last 24 Hours: Intake & Output 05/28/19 05/29/19 05/29/19 22:59 06:59 14:59 Intake Total 1589 Output Total 600 Balance 989 Lab Results Last 24 Hours: Laboratory Results - last 24 hr 05/28/19 05/28/19 05/29/19 Range/Units 11:23 17:45 09:50 Sodium 142 138 (136-148) mmol/L Potassium 3.6 3.9 (3.5-5.1) mmol/L Chloride 102 101 (98-107) mmol/L Carbon Dioxide 27.8 31.1 (21.0-32.0) mmol/L BUN 30 H 18 (7.0-18.0) mg/dL Creatinine 1.3 1.1 (0.8-1.3) mg/dL Est Cr Clr Drug Dosing 60.94 72.02 mL/min Estimated GFR (MDRD) > 60.0 > 60.0 ml/min Glucose 129 H 141 H (74-106) mg/dL Hemoglobin A1c (4.5-6.2) % Calcium 8.8 8.4 L (8.5-10.1) mg/dL Total Bilirubin 2.0 H (0.2-1.0) mg/dL AST 45 H (15-37) IU/L ALT 48 (14-63) IU/L Alkaline Phosphatase 109 (46-116) U/L Total Protein 8.6 H (6.4-8.2) g/dL Albumin 3.7 (3.4-5.0) g/dL Globulin 4.9 H (2.6-4.0) g/dL Albumin/Globulin Ratio 0.8 L (0.9-1.6) Triglycerides 80 (0-200) mg/dL Cholesterol 159 (50-200) mg/dL LDL Cholesterol, Calc 84 (60-180) mg/dL VLDL Cholesterol 16 (5-55) mg/dL HDL Cholesterol 59 (40-60) mg/dL Cholesterol/HDL Ratio 2.7 L (3.3-6.0) TSH 3rd Generation 1.43 (0.36-3.74) uIU/mL Urine Color YELLOW Urine Appearance CLEAR Urine pH 6.0 (5.0-8.0) Ur Specific Herman >= 1.030 (1.001-1.035) Urine Protein 30 H (NEGATIVE) mg/dL Urine Glucose (UA) NEGATIVE (NEGATIVE) mg/dL Urine Ketones NEGATIVE (NEGATIVE) mg/dL Urine Occult Blood NEGATIVE (NEGATIVE) Urine Nitrite NEGATIVE (NEGATIVE) Urine Bilirubin NEGATIVE (NEGATIVE) Urine Urobilinogen 0.2 (<2.0) EU/dL Ur Leukocyte Esterase NEGATIVE (NEGATIVE) Urine RBC NONE SEEN (0-2/HPF) Urine WBC 0-1 (0-5/HPF) Ur Epithelial Cells OCCASIONAL (NONE-FEW) Urine Bacteria FEW (NEGATIVE) Urine Mucus LIGHT (NONE-MOD) 05/29/19 Range/Units 09:50 Sodium (136-148) mmol/L Potassium (3.5-5.1) mmol/L Chloride (98-107) mmol/L Carbon Dioxide (21.0-32.0) mmol/L BUN (7.0-18.0) mg/dL Creatinine (0.8-1.3) mg/dL Est Cr Clr Drug Dosing mL/min Estimated GFR (MDRD) ml/min Glucose (74-106) mg/dL Hemoglobin A1c 5.2 (4.5-6.2) % Calcium (8.5-10.1) mg/dL Total Bilirubin (0.2-1.0) mg/dL AST (15-37) IU/L ALT (14-63) IU/L Alkaline Phosphatase (46-116) U/L Total Protein (6.4-8.2) g/dL Albumin (3.4-5.0) g/dL Globulin (2.6-4.0) g/dL Albumin/Globulin Ratio (0.9-1.6) Triglycerides (0-200) mg/dL Cholesterol (50-200) mg/dL LDL Cholesterol, Calc (60-180) mg/dL VLDL Cholesterol (5-55) mg/dL HDL Cholesterol (40-60) mg/dL Cholesterol/HDL Ratio (3.3-6.0) TSH 3rd Generation (0.36-3.74) uIU/mL Urine Color Urine Appearance Urine pH (5.0-8.0) Ur Specific Herman (1.001-1.035) Urine Protein (NEGATIVE) mg/dL Urine Glucose (UA) (NEGATIVE) mg/dL Urine Ketones (NEGATIVE) mg/dL Urine Occult Blood (NEGATIVE) Urine Nitrite (NEGATIVE) Urine Bilirubin (NEGATIVE) Urine Urobilinogen (<2.0) EU/dL Ur Leukocyte Esterase (NEGATIVE) Urine RBC (0-2/HPF) Urine WBC (0-5/HPF) Ur Epithelial Cells (NONE-FEW) Urine Bacteria (NEGATIVE) Urine Mucus (NONE-MOD) Med Orders - Current: Current Medications Hydrocodone Bitart/Acetaminophen (Puryear 325-5 Mg) 1 tab PO Q4H PRN PRN Reason: Pain (moderate 4-6) Hydrocodone Bitart/Acetaminophen ([place]ear 325-10 Mg) 1 tab PO Q4H PRN PRN Reason: Pain (severe 7-10) Amlodipine Besylate (Norvasc) 5 mg PO DAILY [facility] Last Admin: 05/29/19 09:31 Dose: 5 mg Benzocaine/Menthol (Cepacol Sore Throat) 1 lozenge MUCMEM Q1H PRN PRN Reason: Sore Throat Diphenhydramine HCl (Benadryl) 25 mg IVPUSH Q4H PRN PRN Reason: Itching Hydromorphone HCl (Dilaudid) 0.5 mg IVPUSH Q1H PRN PRN Reason: Pain Lactated Ringer's (Ringers, Lactated) 1,000 mls @ 100 mls/hr IV ASDIRECTED [facility] Last Admin: 05/29/19 09:43 Dose: 100 mls/hr Labetalol HCl (Normodyne) 10 mg IVPUSH Q6H PRN; Protocol PRN Reason: Other Ondansetron HCl (Zofran) 4 mg IVPUSH Q4H PRN PRN Reason: Nausea/Vomiting Senna/Docusate Sodium (Senna Plus) 1 tab PO BID [facility] Last Admin: 05/29/19 09:34 Dose: 1 tab Discontinued Medications Bupivacaine HCl (Sensorcaine-Mpf 0.5%) Confirm Administered Dose 10 ml .ROUTE .STK-MED ONE Stop: 05/28/19 12:00 Bupivacaine HCl (Sensorcaine-Mpf 0.5%) Confirm Administered Dose 10 ml .ROUTE .STK-MED ONE Stop: 05/28/19 14:02 Cefazolin Sodium (Ancef) Confirm Administered Dose 1 gm .ROUTE .STK-MED ONE Stop: 05/28/19 12:00 Etomidate (Amidate) 40 mg IVPUSH .STK-MED ONE Stop: 05/28/19 11:39 Fentanyl (Sublimaze) Confirm Administered Dose 250 mcg .ROUTE .STK-MED ONE Stop: 05/28/19 11:59 Fentanyl (Sublimaze) 50 mcg IVPUSH Q5M PRN PRN Reason: Pain Fentanyl (Sublimaze) 50 mcg IVPUSH ONETIME ONE Stop: 05/28/19 12:08 Last Admin: 05/28/19 15:24 Dose: Not Given Fentanyl (Sublimaze) Confirm Administered Dose 100 mcg .ROUTE .STK-MED ONE Stop: 05/28/19 14:01 Glycopyrrolate (Robinul) Confirm Administered Dose 0.2 mg .ROUTE .STK-MED ONE Stop: 05/28/19 12:01 Sodium Chloride (Normal Saline) 1,000 mls @ 999 mls/hr IV STAT ONE Stop: 05/28/19 12:20 Last Admin: 05/28/19 11:40 Dose: Not Given Lactated Ringer's (Ringers, Lactated) 1,000 mls @ 100 mls/hr IV ASDIRECTED [facility] Last Admin: 05/28/19 11:39 Dose: 100 mls/hr Cefazolin Sodium/Dextrose 2 gm (/ Premix) 50 mls @ 100 mls/hr IV ONETIME ONE Stop: 05/28/19 12:23 Last Admin: 05/28/19 12:05 Dose: 100 mls/hr Lactated Ringer's (Ringers, Lactated) 1,000 mls @ 125 mls/hr IV ASDIRECTED [facility] Influenza Virus Vaccine (Pharmacy To Dose - Influenza Vaccine) 1 each IM ONETIME ONE Stop: 05/29/19 04:08 Influenza Virus Vaccine (Fluzone Quad 1142-5542 Syringe) 60 mcg IM .ONCE ONE Stop: 05/29/19 10:01 Last Admin: 05/29/19 11:20 Dose: 60 mcg Ketorolac Tromethamine (Toradol) Confirm Administered Dose 30 mg .ROUTE .STK- MED ONE Stop: 05/28/19 12:01 Ketorolac Tromethamine (Toradol) 30 mg IM Q6H [facility] Stop: 05/29/19 08:31 Last Admin: 05/28/19 16:11 Dose: Not Given Ketorolac Tromethamine (Toradol) 30 mg IVPUSH Q6H [facility] Stop: 05/29/19 10:01 Last Admin: 05/29/19 09:35 Dose: 30 mg Midazolam HCl (Versed 1 Mg/Ml) Confirm Administered Dose 2 mg .ROUTE .STK-MED ONE Stop: 05/28/19 11:59 Morphine Sulfate (Morphine) 2 mg IVPUSH ONETIME ONE Stop: 05/28/19 11:28 Last Admin: 05/28/19 11:39 Dose: 2 mg Ondansetron HCl (Zofran) 4 mg IVPUSH ONETIME ONE Stop: 05/28/19 11:28 Last Admin: 05/28/19 11:39 Dose: 4 mg Ondansetron HCl (Zofran) Confirm Administered Dose 4 mg .ROUTE .STK-MED ONE Stop: 05/28/19 12:01 Ondansetron HCl (Zofran) 4 mg IVPUSH Q4H PRN PRN Reason: Nausea Phenylephrine HCl (Phenylephrine In Ns 100 Mcg/Ml) Confirm Administered Dose 1 mg .ROUTE .STK-MED ONE Stop: 05/28/19 12:43 Propofol (Diprivan 20 Ml) Confirm Administered Dose 200 mg .ROUTE .STK-MED ONE Stop: 05/28/19 11:59 Rocuronium Stowell (Zemuron) Confirm Administered Dose 100 mg .ROUTE .STK-MED ONE Stop: 05/28/19 12:01 Succinylcholine Chloride (Succinylcholine Chloride) Confirm Administered Dose 200 mg .ROUTE .STK-MED ONE Stop: 05/28/19 12:01 Sugammadex Sodium (Bridion) Confirm Administered Dose 200 mg .ROUTE .STK-MED ONE Stop: 05/28/19 12:04 - Exam General: Alert, Oriented, Cooperative, No Acute Distress Lungs: Clear to Auscultation, Normal Respiratory Effort Cardiovascular: Regular Rate, Regular Rhythm GI/Abdominal Exam: Normal Bowel Sounds, Soft, No Distention, Other (RLQ dressing c/d/i) Consult PN Assessment/Plan Procedures: Procedures AIRWAY INHALATION TREATMENT (07/06/17) ASSAY THYROID STIM HORMONE (07/11/17) COMPLETE CBC W/AUTO DIFF WBC (07/11/17) COMPREHEN METABOLIC PANEL (07/11/17) EMERGENCY DEPT VISIT (07/06/17) ROUTINE VENIPUNCTURE (07/11/17) THER/PROPH/DIAG INJ SC/IM (07/06/17) X-RAY EXAM CHEST 2 VIEWS (07/11/17) Problem List Initiated/Reviewed/Updated: Yes My Orders Last 24 Hours: My Active Orders 05/28/19 19:15 amLODIPine [Norvasc] 5 mg PO DAILY 05/28/19 19:20 Labetalol [Normodyne] 10 mg IVPUSH Q6H PRN Plan: Assessment: 1. Right incarcerated inguinal hernia s/p repair POD#1. 2. HTN. Plan: 1. For hypertension, patient started on amlodipine 5 mg qd. Advised patient that he should establish with a PCP on discharge to further monitor his blood pressure. Will also order lipid panel and TSH. 2. Thank you for the opportunity to take part in the care of this patient. <River Rodrigues - Last Filed: 05/31/19 13:13> - Patient Data Vitals - Most Recent: Last Vital Signs Temp 37.0 C 05/29/19 07:35 Pulse 69 05/29/19 07:35 Resp 16 05/29/19 07:35 BP 139/71 05/29/19 09:31 Pulse Ox 98 05/29/19 07:35 Med Orders - Current: Current Medications Discontinued Medications Hydrocodone Bitart/Acetaminophen ([place]ear 325-5 Mg) 1 tab PO Q4H PRN PRN Reason: Pain (moderate 4-6) Hydrocodone Bitart/Acetaminophen ([place] 325-10 Mg) 1 tab PO Q4H PRN PRN Reason: Pain (severe 7-10) Amlodipine Besylate (Norvasc) 5 mg PO DAILY [facility] Last Admin: 05/29/19 09:31 Dose: 5 mg Benzocaine/Menthol (Cepacol Sore Throat) 1 lozenge MUCMEM Q1H PRN PRN Reason: Sore Throat Bupivacaine HCl (Sensorcaine-Mpf 0.5%) Confirm Administered Dose 10 ml .ROUTE .STK-MED ONE Stop: 05/28/19 12:00 Bupivacaine HCl (Sensorcaine-Mpf 0.5%) Confirm Administered Dose 10 ml .ROUTE .STK-MED ONE Stop: 05/28/19 14:02 Cefazolin Sodium (Ancef) Confirm Administered Dose 1 gm .ROUTE .STK-MED ONE Stop: 05/28/19 12:00 Diphenhydramine HCl (Benadryl) 25 mg IVPUSH Q4H PRN PRN Reason: Itching Etomidate (Amidate) 40 mg IVPUSH .STK-MED ONE Stop: 05/28/19 11:39 Fentanyl (Sublimaze) Confirm Administered Dose 250 mcg .ROUTE .STK-MED ONE Stop: 05/28/19 11:59 Fentanyl (Sublimaze) 50 mcg IVPUSH Q5M PRN PRN Reason: Pain Fentanyl (Sublimaze) 50 mcg IVPUSH ONETIME ONE Stop: 05/28/19 12:08 Last Admin: 05/28/19 15:24 Dose: Not Given Fentanyl (Sublimaze) Confirm Administered Dose 100 mcg .ROUTE .STK-MED ONE Stop: 05/28/19 14:01 Glycopyrrolate (Robinul) Confirm Administered Dose 0.2 mg .ROUTE .STK-MED ONE Stop: 05/28/19 12:01 Hydromorphone HCl (Dilaudid) 0.5 mg IVPUSH Q1H PRN PRN Reason: Pain Sodium Chloride (Normal Saline) 1,000 mls @ 999 mls/hr IV STAT ONE Stop: 05/28/19 12:20 Last Admin: 05/28/19 11:40 Dose: Not Given Lactated Ringer's (Ringers, Lactated) 1,000 mls @ 100 mls/hr IV ASDIRECTED [facility] Last Admin: 05/28/19 11:39 Dose: 100 mls/hr Cefazolin Sodium/Dextrose 2 gm (/ Premix) 50 mls @ 100 mls/hr IV ONETIME ONE Stop: 05/28/19 12:23 Last Admin: 05/28/19 12:05 Dose: 100 mls/hr Lactated Ringer's (Ringers, Lactated) 1,000 mls @ 125 mls/hr IV ASDIRECTED [facility] Lactated Ringer's (Ringers, Lactated) 1,000 mls @ 100 mls/hr IV ASDIRECTED [facility] Last Admin: 05/29/19 09:43 Dose: 100 mls/hr Influenza Virus Vaccine (Pharmacy To Dose - Influenza Vaccine) 1 each IM ONETIME ONE Stop: 05/29/19 04:08 Influenza Virus Vaccine (Fluzone Quad [id number] Syringe) 60 mcg IM .ONCE ONE Stop: 05/29/19 10:01 Last Admin: 05/29/19 11:20 Dose: 60 mcg Ketorolac Tromethamine (Toradol) Confirm Administered Dose 30 mg .ROUTE .STK- MED ONE Stop: 05/28/19 12:01 Ketorolac Tromethamine (Toradol) 30 mg IM Q6H [facility] Stop: 05/29/19 08:31 Last Admin: 05/28/19 16:11 Dose: Not Given Ketorolac Tromethamine (Toradol) 30 mg IVPUSH Q6H [facility] Stop: 05/29/19 10:01 Last Admin: 05/29/19 09:35 Dose: 30 mg Labetalol HCl (Normodyne) 10 mg IVPUSH Q6H PRN; Protocol PRN Reason: Other Midazolam HCl (Versed 1 Mg/Ml) Confirm Administered Dose 2 mg .ROUTE .STK-MED ONE Stop: 05/28/19 11:59 Morphine Sulfate (Morphine) 2 mg IVPUSH ONETIME ONE Stop: 05/28/19 11:28 Last Admin: 05/28/19 11:39 Dose: 2 mg Ondansetron HCl (Zofran) 4 mg IVPUSH ONETIME ONE Stop: 05/28/19 11:28 Last Admin: 05/28/19 11:39 Dose: 4 mg Ondansetron HCl (Zofran) Confirm Administered Dose 4 mg .ROUTE .STK-MED ONE Stop: 05/28/19 12:01 Ondansetron HCl (Zofran) 4 mg IVPUSH Q4H PRN PRN Reason: Nausea Ondansetron HCl (Zofran) 4 mg IVPUSH Q4H PRN PRN Reason: Nausea/Vomiting Phenylephrine HCl (Phenylephrine In Ns 100 Mcg/Ml) Confirm Administered Dose 1 mg .ROUTE .STK-MED ONE Stop: 05/28/19 12:43 Propofol (Diprivan 20 Ml) Confirm Administered Dose 200 mg .ROUTE .STK-MED ONE Stop: 05/28/19 11:59 Rocuronium Stowell (Zemuron) Confirm Administered Dose 100 mg .ROUTE .STK-MED ONE Stop: 05/28/19 12:01 Senna/Docusate Sodium (Senna Plus) 1 tab PO BID [facility] Last Admin: 05/29/19 09:34 Dose: 1 tab Succinylcholine Chloride (Succinylcholine Chloride) Confirm Administered Dose 200 mg .ROUTE .STK-MED ONE Stop: 05/28/19 12:01 Sugammadex Sodium (Bridion) Confirm Administered Dose 200 mg .ROUTE .STK-MED ONE Stop: 05/28/19 12:04 Consult PN Assessment/Plan Procedures: Procedures AIRWAY INHALATION TREATMENT (07/06/17) ASSAY THYROID STIM HORMONE (07/11/17) COMPLETE CBC W/AUTO DIFF WBC (07/11/17) COMPREHEN METABOLIC PANEL (07/11/17) EMERGENCY DEPT VISIT (07/06/17) ROUTINE VENIPUNCTURE (07/11/17) THER/PROPH/DIAG INJ SC/IM (07/06/17) X-RAY EXAM CHEST 2 VIEWS (07/11/17) Plan: I have seen and evaluated the patient and agree with the residents note unless specified in my note
== END 2019-05-29 11:20 | disposition home or self-care (01) ==
LOC: MW.ED 11:04 → MW.SDS 11:37 → MW.MS 14:39 → MW.SDS 05-29 11:20
PROVIDERS: ATTEND Surgery
DX: K40.30 Unilateral inguinal hernia, with obstruction, without gangrene, not specified as recurrent (principal); I10 Essential (primary) hypertension; Z23 Encounter for immunization
CPT/HCPCS: 36415; 49507; 80048; 80053; 80061; 81001; 83036; 84443; 85025; 90686; 93005; 96361; 96374; 96375; 99285; A9270; J0330; J0690; J1885; J2250; J2270; J2370; J2405; J2704; J3010; J3490; J7120; 99283

== ENCOUNTER 2021-05-03 13:55 | Emergency (ER) | payer BC ==
[2021-05-03] MEDS ORDERED: Sodium Chloride 0.9% 1,000 ML IV ONE (13:59)
[2021-05-03] MEDS ORDERED: Sodium Chloride 23.4% 77 MEQ in Dextrose 10% in Water 500 ML IV SCH ×2 (14:00)
[2021-05-03] MEDS ORDERED: Labetalol 100 MG/20 ML MDV IVPUSH ONE (14:06)
--- NOTE | 2021-05-03 14:06 | EDM.PDOC ---
ED HPI GENERAL MEDICAL PROBLEM - General Chief Complaint: Trauma Stated Complaint: EMS/FALL Time Seen by Provider: 05/03/21 13:59 Source of Information: Reports: Patient, EMS History Limitations: Reports: No Limitations - History of Present Illness INITIAL COMMENTS - FREE TEXT/NARRATIVE: 65-year-old male presents for fall. Patient denies any past medical history but notes that he does not see a physician regularly. He states that he works at [employer] where he has worked for the last 7 years without issue. Today he had a witnessed fall. EMS was called and while waiting patient did stand up and have an additional fall. His coworkers noticed that he seemed very weak and not himself. EMS noted blood glucose of 53 and he did receive oral glucose prior to arrival. They then started a D10 drip. Blood glucose just prior to arrival was 58. Patient is also noted to be hypertensive to 160s and tachycardic to 120s by EMS. Patient states that he does not recall falling and currently denies any complaints. He does not have a history of diabetes. He denies any chest pain or shortness of breath. Denies any headache. Denies any one-sided body weakness. - Related Data Allergies Allergy/AdvReac Type Severity Reaction Status Date / Time No Known Allergies Allergy Verified 05/03/21 13:57 Home Meds: Home Meds . [No Known Home Meds] 05/03/21 [History] Past Medical History - Past Health History Medical/Surgical History: Denies Medical/Surgical History - Past Surgical History Other Surgical History Comment: No past surgeries Social & Family History - Family History Family Medical History: No Pertinent Family History ED ROS GENERAL - Review of Systems Review Of Systems: Comprehensive ROS is negative, except as noted in HPI. ED EXAM, GENERAL - Physical Exam Exam: See Below Exam Limited By: No Limitations General Appearance: Alert, WD/WN, No Apparent Distress Eye Exam: Bilateral Eye: EOMI, PERRL Ears: Hearing Grossly Normal Throat/Mouth: Normal Voice, No Airway Compromise Head: Atraumatic, Normocephalic Neck: Normal Inspection, Supple, Non-Tender Respiratory/Chest: No Respiratory Distress, Lungs Clear, Normal Breath Sounds, No Accessory Muscle Use Cardiovascular: Normal Peripheral Pulses, Regular Rate, Rhythm GI/Abdominal: Soft, Non-Tender Back Exam: Normal Inspection Extremities: Normal Inspection, Normal Range of Motion Neurological: Alert, Oriented, CN II-XII Intact, Normal Cognition, No Motor/Sensory Deficits Psychiatric: Normal Affect, Normal Mood Skin Exam: Warm, Dry, Intact, Normal Color #1 Interpretation EKG Date: 05/03/21 Time: 14:34 Rhythm: NSR Rate (Beats/Min): 82 [place]: Normal P-Wave: Present QRS: Normal ST-T: Normal QT: Normal MA/PQ Interval: 190 Comparison: NA - No Prior EKG EKG Interpretation Comments: normal EKG Course - Vital Signs Last Recorded V/S: Last Vital Signs Temp 97.5 F 05/03/21 13:55 Pulse 104 H 05/03/21 13:55 Resp 18 05/03/21 13:55 BP 180/113 H 05/03/21 13:55 Pulse Ox - Orders/Labs/Meds Orders: Active Orders 24 hr Category Date Time Status GLYCOSYLATED HEMOGLOBIN,HGBA1C [CHEM] Stat Lab 05/03/21 14:00 Received Sodium Chloride 23.4% 77 meq Med 05/03/21 14:00 Active Dextrose 10% in Water 500 ml IV ASDIRECTED Saline Lock Insert [OM.PC] Stat Oth 05/03/21 13:59 Ordered Medication Orders Sodium Chloride 77 meq/ (Dextrose/Water) 519.25 mls @ 250 mls/hr IV ASDIRECTED [facility] Last Admin: 05/03/21 14:20 Dose: 250 mls/hr Documented by: LINNETTE Labs: Laboratory Tests 05/03/21 05/03/21 Range/Units 14:00 14:00 WBC 8.54 (4.0-11.0) K/uL RBC 4.84 (4.50-5.90) M/uL Hgb 14.4 (13.0-17.0) g/dL Hct 41.4 (38.0-50.0) % MCV 85.5 (80.0-98.0) fL MCH 29.8 (27.0-32.0) pg MCHC 34.8 (31.0-37.0) g/dL RDW Std Deviation 44.5 (28.0-62.0) fl RDW Coeff of Miguelito 15 (11.0-15.0) % Plt Count 300 (150-400) K/uL MPV 9.70 (7.40-12.00) fL Neut % (Auto) 55.7 (48.0-80.0) % Lymph % (Auto) 38.4 (16.0-40.0) % [place] % (Auto) 1.8 (0.0-15.0) % Eos % (Auto) 3.4 (0.0-7.0) % Baso % (Auto) 0.7 (0.0-1.5) % Neut # (Auto) 4.8 (1.4-5.7) K/uL Lymph # (Auto) 3.3 H (0.6-2.4) K/uL [place] # (Auto) 0.2 (0.0-0.8) K/uL Eos # (Auto) 0.3 (0.0-0.7) K/uL Baso # (Auto) 0.1 (0.0-0.1) K/uL Nucleated RBC % 0.2 /100WBC Nucleated RBCs # 0 K/uL Sodium 148 (136-148) mmol/L Potassium 3.3 L (3.5-5.1) mmol/L Chloride 105 (98-107) mmol/L Carbon Dioxide 22.6 (21.0-32.0) mmol/L BUN 22 H (7.0-18.0) mg/dL Creatinine 1.9 H (0.8-1.3) mg/dL Est Cr Clr Drug Dosing 37.53 mL/min Estimated GFR (MDRD) 43.6 ml/min Glucose 83 (74-106) mg/dL Calcium 8.3 L (8.5-10.1) mg/dL Total Bilirubin 1.2 H (0.2-1.0) mg/dL AST 54 H (15-37) IU/L ALT 46 (14-63) IU/L Alkaline Phosphatase 129 H (46-116) U/L Total Protein 9.0 H (6.4-8.2) g/dL Albumin 3.6 (3.4-5.0) g/dL Globulin 5.4 H (2.6-4.0) g/dL Albumin/Globulin Ratio 0.7 L (0.9-1.6) Ethyl Alcohol 259 mg/dL Meds: Medications Generic Name Dose Route Start Last Admin Trade Name Freq PRN Reason Stop Dose Admin Sodium Chloride 77 meq/ 519.25 mls @ 250 mls/hr 11/03/21 14:00 05/03/21 14:20 Dextrose/Water IV 250 mls/hr ASDIRECTED [facility] Administration Discontinued Medications Generic Name Dose Route Start Last Admin Trade Name Jessica PRN Reason Stop Dose Admin Sodium Chloride 1,000 mls @ 999 mls/hr 05/03/21 13:59 05/03/21 14:13 Normal Saline IV 05/03/21 14:59 999 mls/hr .Bolus ONE Administration Labetalol HCl 20 mg 05/03/21 14:06 05/03/21 14:18 Labetalol 100 Mg/20 Ml Mdv IVPUSH 05/03/21 14:07 20 mg ONETIME ONE Administration Protocol - Re-Assessments/Exams Free Text/Narrative Re-Assessment/Exam: 05/03/21 14:08 We will get labs, head CT, C-spine CT. Will give IV fluid bolus and labetalol for hypertension and tachycardia. 05/03/21 15:11 Patient's blood pressure and heart rate responded well to labetalol. Head CT and C-spine are negative. Labs show evidence of alcohol intoxication but otherwise unremarkable. Will discharge patient with PMD follow-up. Departure - Departure Time of Disposition: 15:11 Disposition: Home, Self-Care 01 Condition: Good Clinical Impression: Hypoglycemia - Discharge Information Instructions: Hypoglycemia Forms: ED Department Discharge Additional Instructions: Your labs were grossly unremarkable aside from low blood sugar taken by the EMS crew. You need to follow-up with a primary care physician. The following information is given to patients seen in the emergency department who are being discharged to home. This information is to outline your options for follow-up care. We provide all patients seen in our emergency department with a follow-up referral. The need for follow-up, as well as the timing and circumstances, are variable depending upon the specifics of your emergency department visit. If you don't have a primary care physician on staff, we will provide you with a referral. We always advise you to contact your personal physician following an emergency department visit to inform them of the circumstance of the visit and for follow-up with them and/or the need for any referrals to a consulting specialist. The emergency department will also refer you to a specialist when appropriate. This referral assures that you have the opportunity for follow-up care with a specialist. All of these measure are taken in an effort to provide you with optimal care, which includes your follow-up. Under all circumstances we always encourage you to contact your private physician who remains a resource for coordinating your care. When calling for follow-up care, please make the office aware that this follow-up is from your recent emergency room visit. If for any reason you are refused follow-up, please contact the [facility] Emergency Department at and asked to speak to the emergency department charge nurse. Please follow up with your primary care physician. If you do not have a primary care physician, see below: [facility] [address], [place] [address] My [facility] [address] [place] [address] [facility] [address] [place] [address] Sepsis Event Note (ED) - Focused Exam Vital Signs: Vital Signs Temp Pulse Resp BP 05/03/21 13:55 97.5 F 104 H 18 180/113 H - My Orders Last 24 Hours: My Active Orders 05/03/21 13:59 Saline Lock Insert [OM.PC] Stat 05/03/21 14:00 GLYCOSYLATED HEMOGLOBIN,HGBA1C [CHEM] Stat Sodium Chloride 23.4% 77 meq Dextrose 10% in Water 500 ml IV ASDIRECTED - Assessment/Plan Last 24 Hours: My Active Orders 05/03/21 13:59 Saline Lock Insert [OM.PC] Stat 05/03/21 14:00 GLYCOSYLATED HEMOGLOBIN,HGBA1C [CHEM] Stat Sodium Chloride 23.4% 77 meq Dextrose 10% in Water 500 ml IV ASDIRECTED
--- NOTE | 2021-05-03 14:43 | CT ---
INDICATION: Fall. COMPARISON: None. TECHNIQUE: CT of the head without IV contrast. Coronal and sagittal reconstructions are provided. FINDINGS: No intracranial hemorrhage, mass effect, or evidence of acute infarct. No midline shift. No abnormal extra-axial fluid collections. Mild generalized cerebral and cerebellar volume loss. Normal caliber ventricular system. Normal variant cavum septum pellucidum. Physiologic basal ganglia calcifications. Orbits and extraocular muscles are symmetric. Complete opacification of the maxillary sinuses bilaterally, with evidence of prior maxillary antrostomies. 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 Periapical lucencies involving right maxillary teeth with erosive changes along the inferior wall of the right maxillary sinus. Scattered mucosal thickening in the ethmoid sinuses bilaterally. The mastoid air cells are clear. No acute fracture identified. Soft tissues are unremarkable. IMPRESSION: : 1. No acute intracranial findings. 2. Complete opacification of the maxillary sinuses bilaterally with bony hyperostosis and prior antrostomies. 3. Periapical lucencies involving right maxillary teeth with erosive changes along the inferior wall of the right maxillary sinus. Please note that all CT scans at this facility use dose modulation, iterative reconstruction, and/or weight-based dosing when appropriate to reduce radiation dose to as low as reasonably achievable. Dictated by Lilly Zepeda MD @ 05/03/2021 2:43:08 PM (Electronically Signed)
--- NOTE | 2021-05-03 14:52 | CT ---
Indication: Fall. Technique: CT of the cervical spine without IV contrast. Coronal and sagittal reconstructions. Comparison: None. Findings: No acute fracture or traumatic malalignment of the cervical spine. Vertebral body heights are well maintained. Mild retrolisthesis of C4 on C5 and C5 on C6. Mild disc space narrowing at C4-C5. Multilevel varying degrees of neural foraminal narrowing. Mild disc bulge at C5-C6. No significant spinal canal stenosis. No prevertebral soft tissue swelling. Visualized intracranial contents are unremarkable. The mastoid air cells are clear. The thyroid gland is normal in appearance. The lung apices are clear. Impression: 1. No acute fracture or traumatic malalignment of the cervical spine. 2. Mild retrolisthesis of C4 on C5 and C5 on C6. 3. Mild disc space narrowing at C4-C5 and mild disc bulge at C5-C6. Please note that all CT scans at this facility use dose modulation, iterative reconstruction, and/or weight-based dosing when appropriate to reduce radiation dose to as low as reasonably achievable. Dictated by Lilly Zepeda MD @ 05/03/2021 2:50:19 PM (Electronically Signed)
[2021-05-03 15:07] LABS: CARBON DIOXIDE,CO2 22.6 mmol/L (21.0-32.0); POTASSIUM,K 3.3 mmol/L (3.5-5.1)
== END 2021-05-03 15:31 | disposition home or self-care (01) ==
LOC: MW.ED 13:55
DX: Z04.3 Encounter for examination and observation following other accident (principal); E16.2 Hypoglycemia, unspecified
CPT/HCPCS: 36415; 70450; 72125; 80053; 80307; 83036; 85025; 96374; 99284; J3490; J7030; J7131

== ENCOUNTER 2021-07-11 10:52 | Emergency (ER) | payer BC ==
[2021-07-11] MEDS ORDERED: Meclizine 25 MG Tab PO ONE (11:38)
--- NOTE | 2021-07-11 11:42 | EDM.PDOC ---
ED HPI GENERAL MEDICAL PROBLEM - General Chief Complaint: General Stated Complaint: DIZZINES Time Seen by Provider: 07/11/21 11:34 - History of Present Illness INITIAL COMMENTS - FREE TEXT/NARRATIVE: History of present illness: [] Patient says he is dizzy. This morning he got up when he stood up he felt like he would pass out and had to hold onto something. There was a little bit of rotational vertigo. There was no diaphoresis or nausea. Patient has no recent black or bloody stool. He has no abdominal pain. The patient is a non-smoker and takes no medicine. Patient had an episode a month ago when he had an episode a year ago. He had some work-up a year ago there was no definitive diagnosis. Review of systems: As per history of present illness and below otherwise all systems reviewed and negative. Past medical history: As per history of present illness and as reviewed below otherwise noncontributory. Surgical history: As per history of present illness and as reviewed below otherwise noncontributory. Social history: No reported history of drug or alcohol abuse. Family history: As per history of present illness and as reviewed below otherwise noncontributory. Physical exam: Constitutional - well developed, well-nourished and in no acute distress HEENT - normocephalic, no evidence of trauma - external nose and mouth normal - no mass in neck and no JVD - mucosae moist EYES - full EOM, PERRL, no icterus - no evidence of inflammation, injection, or drainage Respiratory - no respiratory distress, equal bilateral expansion, lungs clear to auscultation and no abnormal lung sounds Cardiovascular - Regular Rhythm with S1 and S2 appreciated and no murmur, gallop or rub. GI - abdomen soft without distension or organomegaly - normal bowel sounds - no guard or rebound Musculoskeletal no gross deformity of long bones or joints - no tenderness, swelling or edema Neurologic - Alert and oriented times four - CN II-XII grossly intact - motor sensory and coordination symmetrically normal Psychiatric - appropriate mood and affect with normal thought content Hematologic - No petechiae or purpura - mucosa appropriate color and sclera not pale - normal nail bed color and refill Integument - no rash or evidence of trauma - normal turgor Diagnostics: [] Therapeutics: [] Impression: [] Plan: [] Definitive disposition and diagnosis as appropriate pending reevaluation and review of above. - Related Data Allergies Allergy/AdvReac Type Severity Reaction Status Date / Time No Known Allergies Allergy Verified 05/03/21 13:57 Home Meds: Home Meds Meclizine [Antivert] 25 mg PO TID PRN #15 tab 07/11/21 [Rx] Past Medical History - Past Health History Medical/Surgical History: Denies Medical/Surgical History HEENT History: Reports: None Cardiovascular History: Reports: None Respiratory History: Reports: None Gastrointestinal History: Reports: None Genitourinary History: Reports: None Musculoskeletal History: Reports: None Neurological History: Reports: None Psychiatric History: Reports: None Endocrine/Metabolic History: Reports: None Hematologic History: Reports: None Immunologic History: Reports: None Oncologic (Cancer) History: Reports: None Dermatologic History: Reports: None - Infectious Disease History Infectious Disease History: Reports: None - Past Surgical History Head Surgeries/Procedures: Reports: None GI Surgical History: Reports: Hernia, Inguinal Social & Family History - Family History Family Medical History: No Pertinent Family History - Tobacco Use Tobacco Use Status *Q: Never Tobacco User - Caffeine Use Caffeine Use: Reports: None - Recreational Drug Use Recreational Drug Use: No ED ROS GENERAL - Review of Systems Review Of Systems: Comprehensive ROS is negative, except as noted in HPI. ED EXAM, GENERAL - Physical Exam Exam: See Below Free Text/Narrative:: My physical exam is in the HPI Course - Vital Signs Last Recorded V/S: Last Vital Signs Temp 36.6 C 07/11/21 11:17 Pulse 66 07/11/21 13:40 Resp 16 07/11/21 13:40 BP 129/73 07/11/21 13:40 Pulse Ox 99 07/11/21 13:40 - Orders/Labs/Meds Labs: Laboratory Tests 07/11/21 07/11/21 Range/Units 12:30 12:30 WBC 6.80 (4.0-11.0) K/uL RBC 4.13 L (4.50-5.90) M/uL Hgb 11.6 L (13.0-17.0) g/dL Hct 33.6 L (38.0-50.0) % MCV 81.4 (80.0-98.0) fL MCH 28.1 (27.0-32.0) pg MCHC 34.5 (31.0-37.0) g/dL RDW Std Deviation 40.2 (28.0-62.0) fl RDW Coeff of Miguelito 14 (11.0-15.0) % Plt Count 232 (150-400) K/uL MPV 9.60 (7.40-12.00) fL Neut % (Auto) 68.8 (48.0-80.0) % Lymph % (Auto) 18.8 (16.0-40.0) % [place] % (Auto) 6.6 (0.0-15.0) % Eos % (Auto) 5.7 (0.0-7.0) % Baso % (Auto) 0.1 (0.0-1.5) % Neut # (Auto) 4.7 (1.4-5.7) K/uL Lymph # (Auto) 1.3 (0.6-2.4) K/uL [place] # (Auto) 0.5 (0.0-0.8) K/uL Eos # (Auto) 0.4 (0.0-0.7) K/uL Baso # (Auto) 0.0 (0.0-0.1) K/uL Nucleated RBC % 0.0 /100WBC Nucleated RBCs # 0 K/uL Sodium 135 L (136-148) mmol/L Potassium 4.1 (3.5-5.1) mmol/L Chloride 101 (98-107) mmol/L Carbon Dioxide 25.9 (21.0-32.0) mmol/L BUN 20 H (7.0-18.0) mg/dL Creatinine 1.3 (0.8-1.3) mg/dL Est Cr Clr Drug Dosing 61.95 mL/min Estimated GFR (MDRD) > 60.0 ml/min Glucose 86 (74-106) mg/dL Calcium 9.5 (8.5-10.1) mg/dL Total Bilirubin 1.0 (0.2-1.0) mg/dL AST 18 (15-37) IU/L ALT 20 (14-63) IU/L Alkaline Phosphatase 84 (46-116) U/L Total Protein 8.0 (6.4-8.2) g/dL Albumin 3.1 L (3.4-5.0) g/dL Globulin 4.9 H (2.6-4.0) g/dL Albumin/Globulin Ratio 0.6 L (0.9-1.6) Meds: Medications Discontinued Medications Generic Name Dose Route Start Last Admin Trade Name Jessica PRN Reason Stop Dose Admin Meclizine HCl 25 mg 07/11/21 11:38 07/11/21 13:40 Meclizine 25 Mg Tab PO 07/11/21 11:39 25 mg ONETIME ONE Administration Departure - Departure Time of Disposition: 13:56 Disposition: Home, Self-Care 01 Condition: Good Clinical Impression: Dizziness - Discharge Information Prescriptions: Meclizine [Antivert] 25 mg PO TID PRN #15 tab PRN Reason: Dizziness Instructions: Vertigo, [id number], Benign Positional Vertigo Referrals: PCP,None [Primary Care Provider] - Forms: ED Department Discharge Additional Instructions: Prescriptions for your symptoms went to [place] pharmacy. Try the medicine. Stay well-hydrated. If no better follow-up with neurology clinic. [facility] - Neurology [address], [address] [place] [address] The following information is given to patients seen in the emergency department who are being discharged to home. This information is to outline your options for follow-up care. We provide all patients seen in our emergency department with a follow-up referral. The need for follow-up, as well as the timing and circumstances, are variable depending upon the specifics of your emergency department visit. If you don't have a primary care physician on staff, we will provide you with a referral. We always advise you to contact your personal physician following an emergency department visit to inform them of the circumstance of the visit and for follow-up with them and/or the need for any referrals to a consulting specialist. The emergency department will also refer you to a specialist when appropriate. This referral assures that you have the opportunity for follow-up care with a specialist. All of these measure are taken in an effort to provide you with optimal care, which includes your follow-up. Under all circumstances we always encourage you to contact your private physician who remains a resource for coordinating your care. When calling for follow-up care, please make the office aware that this follow-up is from your recent emergency room visit. If for any reason you are refused follow-up, please contact the [facility] Emergency Department at and asked to speak to the emergency department charge nurse. Sepsis Event Note (ED) - Evaluation Sepsis Screening Result: No Definite Risk - Focused Exam Vital Signs: Vital Signs Temp Pulse Resp BP Pulse Ox 07/11/21 13:40 66 16 129/73 99 07/11/21 11:17 36.6 C 88 16 129/73 98
[2021-07-11 13:06] LABS: BLOOD UREA NITROGEN,BUN 20 mg/dL (7.0-18.0); CARBON DIOXIDE,CO2 25.9 mmol/L (21.0-32.0); CHLORIDE,CL 101 mmol/L (98-107); GLUCOSE RANDOM 86 mg/dL (74-106); POTASSIUM,K 4.1 mmol/L (3.5-5.1); SODIUM,NA 135 mmol/L (136-148)
== END 2021-07-11 14:10 | disposition home or self-care (01) ==
LOC: MW.ED 10:52
DX: R42 Dizziness and giddiness (principal)
CPT/HCPCS: 36415; 80053; 85025; 99284; A9270

== ENCOUNTER 2023-02-16 09:40 | Emergency (ER) | payer BC ==
[2023-02-16] MEDS ORDERED: Sodium Chloride 0.9% 2.5 ML Syringe FLUSH PRN (09:56)
[2023-02-16] MEDS ORDERED: Sodium Chloride 0.9% 10 ML Syringe FLUSH PRN (09:56)
[2023-02-16] MEDS ORDERED: Ondansetron 4 MG/2 ML SDV IVPUSH ONE (09:58)
[2023-02-16] MEDS ORDERED: Naloxone 0.4 MG/ML SDV IVPUSH PRN (09:58)
[2023-02-16] MEDS ORDERED: Morphine 2 MG/ML SYRINGE IVPUSH ONE (09:58)
[2023-02-16] MEDS ORDERED: Morphine 4 MG/ML Syringe IVPUSH ONE (10:11)
[2023-02-16 10:34] LABS: BASOPHILS PERCENT AUTO 0.1 % (0.0-1.5); EOSINOPHILS PERCENT AUTO 0.5 % (0.0-7.0); HEMATOCRIT 38.5 % (38.0-50.0); HEMOGLOBIN 13.3 g/dL (13.0-17.0); LYMPHOCYTES ABSOLUTE AUTO 1.5 K/uL (0.6-2.4); LYMPHOCYTES PERCENT AUTO 16.8 % (16.0-40.0); MEAN CORPUSCULAR HEMOGLOBIN 28.5 pg (27.0-32.0); MEAN CORPUSCULAR HGB CONC 34.5 g/dL (31.0-37.0); MEAN CORPUSCULAR VOLUME 82.6 fL (80.0-98.0); MONOCYTES ABSOLUTE AUTO 0.6 K/uL (0.0-0.8); MONOCYTES PERCENT AUTO 7.1 % (0.0-15.0); NEUTROPHILS ABSOLUTE AUTO 6.7 K/uL (1.4-5.7); NEUTROPHILS PERCENT AUTO 75.5 % (48.0-80.0); NRBC ABSOLUTE 0 K/uL; PLATELET COUNT,PLT 200 K/uL (150-400); RED BLOOD CELL COUNT 4.66 M/uL (4.50-5.90); WHITE BLOOD CELL COUNT,WBC 8.83 K/uL (4.0-11.0)
[2023-02-16 10:54] LABS: A/G RATIO 0.6 (0.9-1.6); BILIRUBIN TOTAL 1.7 mg/dL (0.2-1.0); CALCIUM 8.9 mg/dL (8.5-10.1); CARBON DIOXIDE,CO2 29.4 mmol/L (21.0-32.0); CREATININE 1.4 mg/dL (0.8-1.3); EST CRCL DRUG DOSING (CG) 56.03 mL/min; POTASSIUM,K 4.4 mmol/L (3.5-5.1); PROTEIN TOTAL,TP 7.9 g/dL (6.4-8.2)
== END 2023-02-16 13:35 | disposition home or self-care (01) ==
LOC: MW.ED 09:40
DX: L03.116 Cellulitis of left lower limb (principal)
CPT/HCPCS: 36415; 80053; 85025; 93971; 96374; 96375; 99284; J2270; J2405; J3490

== ENCOUNTER 2023-11-01 17:52 | Emergency (ER) | payer BC ==
[2023-11-01] MEDS: Ketorolac 60 MG/2 ML SDV IM ONE (18:20)
[2023-11-01] MEDS: methylPREDNISolone Sodium Succinate 125 MG/2 ML SDV IM ONE (18:20)
== END 2023-11-01 18:48 | disposition home or self-care (01) ==
LOC: MW.ED 17:52
DX: L03.116 Cellulitis of left lower limb (principal); Z75.8 Other problems related to medical facilities and other health care; Z79.899 Other long term (current) drug therapy
CPT/HCPCS: 96372; 99283; J1885; J2930

== ENCOUNTER 2024-08-06 16:19 | Emergency (ER) | payer BC ==
[2024-08-06] MEDS ORDERED: Sodium Chloride 0.9% 2.5 ML Syringe FLUSH PRN (16:20)
[2024-08-06] MEDS ORDERED: Sodium Chloride 0.9% 10 ML Syringe FLUSH PRN (16:20)
[2024-08-06 16:34] LABS: BASOPHILS ABSOLUTE AUTO 0.04 K/uL (0.00-0.20); BASOPHILS PERCENT AUTO 0.6 % (0.0-1.0); EOSINOPHILS ABSOLUTE AUTO 0.39 K/uL (0.00-0.45); EOSINOPHILS PERCENT AUTO 5.7 % (0.0-6.0); HEMATOCRIT 36.1 % (42.0-52.0); HEMOGLOBIN 12.6 g/dL (14.0-18.0); IMMATURE GRAN ABSOLUTE AUTO 0.02 K/uL (0.00-0.05); IMMATURE GRAN PERCENT AUTO 0.3 % (0.0-0.4); LYMPHOCYTES ABSOLUTE AUTO 2.91 K/uL (1.00-4.80); LYMPHOCYTES PERCENT AUTO 42.5 % (24.0-44.0); MEAN CORPUSCULAR HEMOGLOBIN 28.3 pg (28.0-32.0); MEAN CORPUSCULAR HGB CONC 34.9 g/dL (32.0-36.0); MEAN CORPUSCULAR VOLUME 81.1 fL (83.0-99.0); MEAN PLATELET VOLUME 9.6 fL (9.4-12.4); MONOCYTES ABSOLUTE AUTO 0.36 K/uL (0.00-0.80); MONOCYTES PERCENT AUTO 5.3 % (0.0-8.0); NEUTROPHILS ABSOLUTE AUTO 3.13 K/uL (1.80-7.70); NEUTROPHILS PERCENT AUTO 45.6 % (41.0-71.0); NRBC ABSOLUTE 0.03 K/uL (0.00-0.02); NRBC PERCENT 0.4 /100WBC (0.0-0.2); PLATELET COUNT,PLT 190 K/uL (150-400); RED BLOOD CELL COUNT 4.45 M/uL (4.52-5.90); WHITE BLOOD CELL COUNT,WBC 6.85 K/uL (3.9-11.3)
[2024-08-06 16:47] LABS: INR 1.12 (0.86-1.11)
[2024-08-06 17:09] LABS: A/G RATIO 0.8 (0.9-1.6); ALBUMIN 3.6 g/dL (3.4-5.0); BILIRUBIN TOTAL 1.8 mg/dL (0.2-1.0); CALCIUM 9.4 mg/dL (8.5-10.1); CARBON DIOXIDE,CO2 27.2 mmol/L (21.0-32.0); CREATININE 1.3 mg/dL (0.8-1.3); EST CRCL DRUG DOSING (CG) 55.9 mL/min; POTASSIUM,K 4.8 mmol/L (3.5-5.1); PROTEIN TOTAL,TP 8.4 g/dL (6.4-8.2)
[2024-08-06] MEDS: Iopamidol 755 MG/ML 500 ML Multipack Bottle IVPUSH STA (17:27)
[2024-08-06 18:03] LABS: BICARBONATE,ARTERIAL 25 mEq/L (22-26); PCO2 ARTERIAL 45 mmHG (35-45); PO2 ARTERIAL 66 mmHG (80-105)
[2024-08-06 18:06] LABS: AMPHETAMINES SCREEN, URINE NEGATIVE (CUTOFF=500); BARBITURATE SCREEN,URINE NEGATIVE (CUTOFF=200); BENZODIAZEPINES SCREEN,URINE NEGATIVE (CUTOFF=150); BUPRENORPHINE SCREEN,URINE NEGATIVE (CUTOFF=10); METHADONE SCREEN, URINE NEGATIVE (CUTOFF=200); METHAMPHETAMINES SCREEN, URINE NEGATIVE (CUTOFF=500); OXYCODONE SCREEN,URINE NEGATIVE (CUT0FF=100); PCP SCREEN,URINE NEGATIVE (CUTOFF=25); THC SCREEN,URINE 20 NG/ML NEGATIVE (CUTOFF=50)
[2024-08-06 21:21] LABS: ETHANOL BLOOD MEDICAL 351 mg/dL
== END 2024-08-07 08:03 | disposition home or self-care (01) ==
LOC: MW.ED 16:19
DX: F10.120 Alcohol abuse with intoxication, uncomplicated (principal); R41.82 Altered mental status, unspecified; R03.0 Elevated blood-pressure reading, without diagnosis of hypertension
CPT/HCPCS: 36415; 36600; 70450; 70496; 70498; 71045; 80053; 80305; 80307; 82803; 82947; 83690; 84484; 85025; 85610; 93005; 99285; Q9967

== ENCOUNTER 2024-10-12 14:06 | Emergency (ER) | payer SELFPAY ==
[2024-10-12] MEDS: Sodium Chloride 0.9% 1,000 ML IV ONE (19:20)
== END 2024-10-12 22:09 | disposition home or self-care (01) ==
LOC: MW.ED 14:06
DX: F10.129 Alcohol abuse with intoxication, unspecified (principal); Y90.9 Presence of alcohol in blood, level not specified
CPT/HCPCS: 96360; 99285; J7030; 99282

== ENCOUNTER 2024-12-25 00:27 | Emergency (ER) | payer SELFPAY ==
[2024-12-25 00:38] LABS: BASOPHILS ABSOLUTE AUTO 0.04 K/uL (0.00-0.20); BASOPHILS PERCENT AUTO 0.8 % (0.0-1.0); EOSINOPHILS ABSOLUTE AUTO 0.19 K/uL (0.00-0.45); EOSINOPHILS PERCENT AUTO 3.9 % (0.0-6.0); HEMATOCRIT 27.1 % (42.0-52.0); HEMOGLOBIN 9.3 g/dL (14.0-18.0); IMMATURE GRAN ABSOLUTE AUTO 0.02 K/uL (0.00-0.05); IMMATURE GRAN PERCENT AUTO 0.4 % (0.0-0.4); LYMPHOCYTES ABSOLUTE AUTO 2.12 K/uL (1.00-4.80); LYMPHOCYTES PERCENT AUTO 43.4 % (24.0-44.0); MEAN CORPUSCULAR HEMOGLOBIN 29.7 pg (28.0-32.0); MEAN CORPUSCULAR HGB CONC 34.3 g/dL (32.0-36.0); MEAN CORPUSCULAR VOLUME 86.6 fL (83.0-99.0); MONOCYTES ABSOLUTE AUTO 0.33 K/uL (0.00-0.80); MONOCYTES PERCENT AUTO 6.7 % (0.0-8.0); NEUTROPHILS ABSOLUTE AUTO 2.19 K/uL (1.80-7.70); NEUTROPHILS PERCENT AUTO 44.8 % (41.0-71.0); NRBC ABSOLUTE 0.05 K/uL (0.00-0.02); PLATELET COUNT,PLT 274 K/uL (150-400); RED BLOOD CELL COUNT 3.13 M/uL (4.52-5.90); WHITE BLOOD CELL COUNT,WBC 4.89 K/uL (3.9-11.3)
[2024-12-25] MEDS: Sodium Chloride 0.9% 500 ML IV ONE (00:41)
[2024-12-25 01:18] LABS: A/G RATIO 0.7 (0.9-1.6); ACETAMINOPHEN <2.0 ug/mL; ALANINE AMINOTRANSFERASE,ALT 15 IU/L (14-63); ALBUMIN 2.8 g/dL (3.4-5.0); ALKALINE PHOSPHATASE 162 U/L (46-116); ASPARTATE AMNIOTRANSFERASE,AST 32 IU/L (15-37); BILIRUBIN TOTAL 1.1 mg/dL (0.2-1.0); BLOOD UREA NITROGEN,BUN 13 mg/dL (7.0-18.0); CHLORIDE,CL 106 mmol/L (98-107); CREATININE 1.3 mg/dL (0.8-1.3); EST CRCL DRUG DOSING (CG) 54.59 mL/min; GLUCOSE RANDOM 98 mg/dL (74-106); POTASSIUM,K 2.9 mmol/L (3.5-5.1); PROTEIN TOTAL,TP 6.8 g/dL (6.4-8.2); SODIUM,NA 146 mmol/L (136-148)
[2024-12-25 01:21] LABS: ESTIMATED GFR 60 mL/min (>60); ETHANOL BLOOD MEDICAL 464 mg/dL; SALICYLATE < 0.2 mg/dL (0.0-20.0)
[2024-12-25] MEDS: Potassium Chloride 20 MEQ in Premix Bag 1 BAG IV ONE (01:57)
[2024-12-25] MEDS: Potassium Chloride 10% 20 MEQ/15 ML Soln 15 ML UD Cup PO ONE (02:24)
[2024-12-25] MEDS: Sodium Chloride 0.9% 500 ML IV SCH (06:32)
[2024-12-25] MEDS: hydrALAZINE 20 MG/ML SDV IVPUSH ONE ×2 (06:57→08:12)
[2024-12-25 06:59] LABS: CALCIUM 8.1 mg/dL (8.5-10.1); CARBON DIOXIDE,CO2 27.6 mmol/L (21.0-32.0); CREATININE 1.1 mg/dL (0.8-1.3); EST CRCL DRUG DOSING (CG) 64.52 mL/min; MAGNESIUM 1.5 mg/dL (1.8-2.4); POTASSIUM,K 3.5 mmol/L (3.5-5.1)
[2024-12-25] MEDS: Magnesium Oxide 400 MG Tab PO ONE (08:12)
== END 2024-12-25 10:42 | disposition home or self-care (01) ==
LOC: MW.ED 00:27
DX: F10.129 Alcohol abuse with intoxication, unspecified (principal); M79.89 Other specified soft tissue disorders; L89.152 Pressure ulcer of sacral region, stage 2; E87.6 Hypokalemia; D64.9 Anemia, unspecified; I10 Essential (primary) hypertension; Z75.3 Unavailability and inaccessibility of health-care facilities
CPT/HCPCS: 36415; 70450; 72125; 73120; 80048; 80053; 80143; 80179; 80307; 82550; 83735; 85025; 93005; 96361; 96365; 96366; 96374; 96375; 99285; A9270; J0360; J3480; J7030; J7040; 99283

== ENCOUNTER 2024-12-25 16:08 | Emergency (ER) | payer SELFPAY ==
[2024-12-25] MEDS ORDERED: Sodium Chloride 0.9% 20 ML SDV IV PRN (16:21)
[2024-12-25] MEDS ORDERED: Sodium Chloride 0.9% 2.5 ML Syringe FLUSH PRN (16:21)
[2024-12-25] MEDS ORDERED: Sodium Chloride 0.9% 10 ML Syringe FLUSH PRN (16:21)
[2024-12-25 16:59] LABS: BASOPHILS ABSOLUTE AUTO 0.05 K/uL (0.00-0.20); BASOPHILS PERCENT AUTO 1.3 % (0.0-1.0); EOSINOPHILS ABSOLUTE AUTO 0.18 K/uL (0.00-0.45); EOSINOPHILS PERCENT AUTO 4.5 % (0.0-6.0); HEMATOCRIT 26.4 % (42.0-52.0); HEMOGLOBIN 8.8 g/dL (14.0-18.0); IMMATURE GRAN ABSOLUTE AUTO 0.01 K/uL (0.00-0.05); IMMATURE GRAN PERCENT AUTO 0.3 % (0.0-0.4); LYMPHOCYTES ABSOLUTE AUTO 1.29 K/uL (1.00-4.80); LYMPHOCYTES PERCENT AUTO 32.3 % (24.0-44.0); MEAN CORPUSCULAR HEMOGLOBIN 28.9 pg (28.0-32.0); MEAN CORPUSCULAR HGB CONC 33.3 g/dL (32.0-36.0); MEAN CORPUSCULAR VOLUME 86.8 fL (83.0-99.0); MEAN PLATELET VOLUME 9.3 fL (9.4-12.4); MONOCYTES ABSOLUTE AUTO 0.28 K/uL (0.00-0.80); NEUTROPHILS ABSOLUTE AUTO 2.19 K/uL (1.80-7.70); NEUTROPHILS PERCENT AUTO 54.6 % (41.0-71.0); NRBC ABSOLUTE 0.04 K/uL (0.00-0.02); PLATELET COUNT,PLT 274 K/uL (150-400); RED BLOOD CELL COUNT 3.04 M/uL (4.52-5.90)
[2024-12-25 18:31] LABS: A/G RATIO 0.7 (0.9-1.6); ALANINE AMINOTRANSFERASE,ALT 11 IU/L (14-63); ALBUMIN 2.6 g/dL (3.4-5.0); ALKALINE PHOSPHATASE 146 U/L (46-116); ASPARTATE AMNIOTRANSFERASE,AST 32 IU/L (15-37); BILIRUBIN TOTAL 0.9 mg/dL (0.2-1.0); BLOOD UREA NITROGEN,BUN 14 mg/dL (7.0-18.0); CALCIUM 7.7 mg/dL (8.5-10.1); CARBON DIOXIDE,CO2 23.5 mmol/L (21.0-32.0); CHLORIDE,CL 108 mmol/L (98-107); CREATININE 1.1 mg/dL (0.8-1.3); GLUCOSE RANDOM 88 mg/dL (74-106); MAGNESIUM 1.5 mg/dL (1.8-2.4); POTASSIUM,K 3.2 mmol/L (3.5-5.1); PROTEIN TOTAL,TP 6.3 g/dL (6.4-8.2); SODIUM,NA 146 mmol/L (136-148)
[2024-12-25 18:33] LABS: ESTIMATED GFR 74 mL/min (>60); ETHANOL BLOOD MEDICAL 404 mg/dL
== END 2024-12-25 17:23 | disposition left against medical advice (07) ==
LOC: MW.ED 16:08
DX: F10.129 Alcohol abuse with intoxication, unspecified (principal); Y90.9 Presence of alcohol in blood, level not specified
CPT/HCPCS: 36415; 80053; 80307; 82550; 83735; 85025; 99283; 99284